=== PATIENT | male | born 1965 | race Caucasian/White ===

== ENCOUNTER 2018-08-14 11:43 | Emergency (ER) | payer OTHER ==
--- OUTSIDE RECORDS SUMMARY | 2018-08-14 11:46 | XMS REPORT | Continuity of Care Document ---
:1965 Author Organization Interface Problems Problem Status Onset Classification Date Comments Source Date Reported SIALOLTHOASIS Active 11/03/19 [facility] [place] BURN Active 01/16/[address] Anxiety Resolved Problem 01/17/2013 [facility] Bipolar Resolved Problem 01/17/2013 [facility] Depression Resolved Problem 01/17/2013 [facility] Hepatitis C Resolved Problem 01/17/2013 [facility] Seizure Resolved Problem 01/17/2013 [facility] Anxiety Resolved Problem 01/06/2017 [facility] Bipolar Resolved Problem 01/06/2017 [facility] COPD (<span Active Problem 01/06/2017 ID="[id number] [facility] ">Confirmed</spa n>) Congestive heart Active Problem 01/06/20172015 failure (<[facility] ID="[id number] ">Confirmed</spa n>)<sup>1</sup> Depression Resolved Problem 01/06/2017 [facility] Acid reflux Active Problem 01/06/2017 [facility] Hepatitis C Resolved Problem 01/06/2017 [facility] Depression Active Problem 01/06/2017 [facility] Seizure Resolved Problem 01/06/2017 [facility] Apnea, sleep Active Problem 01/06/2017 [facility] CAT BITE Active [facility] Medications Medication Details Route Status Patient Ordering Order Source Instructions Provider Date Acetaminophen 1,000 [facility], [facility]: IVPB, 2016 [facility] Drug form: INJ, ONCE, Dosing Weight 140, kg, PRN Pain Score 1-3, Start date: 01/03/17 11:56:00 CDT, Duration: 1 doses or times, Stop date: Limited # of times Calcium Chloride 1,000 mL, Rate: Inactive 0.0014 MEQ/ML / 125 ml/hr, 2016 [facility] Potassium Infuse over: 8 Chloride 0.004 hr, Route: IV, MEQ/ML / Sodium Dosing Weight Chloride 0.103 140 kg, Total MEQ/ML / Sodium Volume: 1,000, Lactate 0.028 Start date: MEQ/ML 01/03/17 Injectable 11:56:00 CDT, Solution Duration: 30 day, Stop date: 02/02/17 11:55:00 CDT Fentanyl 50 microgram, 1 Inactive mL, Route: IVP2016 [facility] Drug form: INJ, Q5Min, Dosing Weight 140, kg, PRN Pain Score 7-10, Priority: Routine, Start date: 01/03/17 11:56:00 CDT, Duration: 2 doses or times, Stop date: Limited # of timesNotes: (Same as: Sublimaze) Preservative free. Morphine 4 mg, 1 mL, Inactive Route: IVP2016 [facility] Drug form: INJ, Q5Min, Dosing Weight 140, kg, PRN Pain Score 7-10, Start date: 01/03/17 11:56:00 CDT, Duration: 3 doses or times, Stop date: Limited # of timesNotes: (Same as:MORPhine Sulfate) Flumazenil 0.2 mg, 2 mL, Inactive Route: IV2016 [facility] Drug form: INJ, PRN, Dosing Weight 140, kg, PRN Benzodiazepine Reversal, Initial dose, Start date: 01/03/17 11:56:00 CDT, Duration: 30 day, Stop date: 02/02/17 11:55:00 CDTNotes: (Same as: Romazicon) Hydralazine 5 mg, 0.25 mL, Inactive Route: IV2016 [facility] Drug form: INJ, Q20Min, Dosing Weight 140, kg, PRN Elevated BP, Start date: 01/03/17 11:56:00 CDT, Duration: 4 doses or times, Stop date: Limited # of timesNotes: (Same as: Apresoline) Push over 5 minutes Labetalol 5 mg, 1 mL, Inactive Route: IVP2016 [facility] Drug form: INJ, Q5Min, Dosing Weight 140, kg, PRN Elevated BP, Start date: 01/03/17 11:56:00 CDT, Duration: 5 doses or times, Stop date: Limited # of timesNotes: (Same as: Normodyne, Trandate) Push over 2 minutes Give bolus over 2-3 minutes. Naloxone 0.4 mg, 1 mL, Inactive Route: IVP, 2017 [facility] Drug form: INJ, Q2MIN, Dosing Weight 140, kg, PRN Narcotic Reversal, Start date: 01/03/17 11:56:00 CDT, Duration: 8 doses or times, Stop date: Limited # of timesNotes: Same as Narcan Midazolam 1 mg, 1 mL, Inactive Route: IV2016 [facility] Drug form: INJ, Q5Min, Dosing Weight 140, kg, PRN Anxiety, Start date: 01/03/17 11:56:00 CDT, Duration: 2 doses or times, Stop date: Limited # of timesNotes: (Same as: Versed) MEDICATION WASTE Product Size: 2 mg Product Wasted: ___ mg Meperidine 12.5 mg, 0.25 Inactive mL, Route: IV2016 [facility] Drug form: INJ, Q30Min, Dosing Weight 140, kg, PRN Other -See Comment, For shivering, Start date: 01/03/17 11:56:00 CDT, Duration: 2 doses or times, Stop date: Limited # of timesNotes: (Same As: Demerol) Ondansetron 4 mg, 2 mL, Inactive Route: IV2016 [facility] Drug form: INJ, ONCE, Dosing Weight 140, kg, PRN Nausea & Vomiting, Start date: 01/03/17 11:56:00 CDTNotes: (Same as: Zofran) MEDICATION WASTE Product Size: 4 mg Product Wasted: ___ mg Diphenhydramine 12.5 mg, 0.25 Inactive mL, Route: IVP2016 [facility] Drug form: INJ, Q6H, Dosing Weight 140, kg, PRN Itching, Start date: 01/03/17 11:56:00 CDT, Duration: 30 day, Stop date: 02/02/17 11:55:00 CDTNotes: (Same as: Benadryl) ondansetron Route: IV, Drug Inactive (ANES) form: INJ, 2016 [facility] ONCE, Stop date: 01/03/17 11:37:00 CDT glycopyrrolate Route: IV, Drug Inactive MH (ANES) form: INJ, 2016 [facility] , Stop date: 01/03/17 11:37:00 CDT neostigmine Route: IV, Drug Inactive (ANES) form: INJ, 2016 [facility] , Stop date: 01/03/17 11:37:00 CDT dexamethasone Route: IV, Drug Inactive (ANES) form: INJ, 2016 [facility] , Stop date: 01/03/17 11:37:00 CDT Aspirin 0 Refill(s) Active 2016 [facility] rocuronium Route: IV, Drug Inactive (ANES) form: INJ, 2016 [facility] , Stop date: 01/03/17 11:12:00 CDT succinylcholine Route: IV, Drug Inactive (ANES) form: INJ, 2016 [facility] , Stop date: 01/03/17 11:07:00 CDT lidocaine (ANES) Route: IV, Drug Inactive form: INJ, 2016 [facility] , Stop date: 01/03/17 11:07:00 CDT propofol (ANES) Route: IV, Drug Inactive form: INJ, 2016 [facility] , Stop date: 01/03/17 11:07:00 CDT fentaNYL (ANES) Route: IV, Drug Inactive form: INJ, 2016 [facility] , Stop date: 01/03/17 11:07:00 CDT midazolam (ANES) Route: IV, Drug Inactive form: SOLN, 2016 [facility] , Stop date: 01/03/17 11:02:00 CDT ceFAZolin (ANES) Route: IV, Drug Inactive form: INJ, 2016 [facility] , Stop date: 01/03/17 11:02:00 CDT LR 1000 mL INJ Route: IV, Inactive (ANES) Total Volume: 2016 [facility] 1,000, Start date: 01/03/17 10:15:00 CDT, Stop date: 01/03/17 11:15:00 CDT Lasix =1 tab, PO, Active Daily, 0 2016 [facility] Refill(s) Polysporin 1 appl, Route: TOP No Longer [place] 05/08[facility] topical ointment TOP, BID, Drug Active 2012 Medical form: OINT, Center Start date: 01/16/13 9:00:00, Duration: 30 day, Stop date: 02/14/13 17:00:00 [place] 10/325 1-2 tab, PO, PO Active [place] [facility] oral tablet Q4-6H, PRN, 2012 Medical tab, Pain, Center Substitution Allowed, Maintenance morphine Sulfate 6 mg, 0.6 mL, IVP No Longer [place] 01/16[facility] Route: IVP, Active 2012 Medical Drug form: [place] SOLN, ONCE, Dosing Weight 129.545, kg, Priority: STAT, Start date: 01/15/13 21:51:00, Stop date: 01/15/13 21:51:00 bacitracin 5 appl, Route: TOP No Longer [place] 01/16[facility] topical TOP, ONCE, Drug Active 2012 Medical form: OINT, Center Start date: 01/15/13 21:46:00, Stop date: 01/15/13 21:46:00 bacitracin 1 appl, Route: TOP No Longer [place] 01/16[facility] TOP, ONCE, Active 2012 Medical Dosing Weight Center 129.545, kg, Start date: 01/15/13 21:41:00, Stop date: 01/15/13 21:41:00 morphine Sulfate 6 mg, Route: IVP No Longer [address] IVP, Drug form: Active 2012 Medical INJ, ONCE, Center Dosing Weight 129.545, kg, Priority: STAT, Start date: 01/15/13 21:34:00, Stop date: 01/15/13 21:34:00 Dilantin 100 mg 4 cap, Route: PO No Longer [place] 01/16[facility] oral capsule, PO, ONCE, Active 2012 Medical extended release Dosing Weight Center 129.545, kg, Start date: 01/15/13 20:45:00, Stop date: 01/15/13 20:45:00 morphine Sulfate 6 mg, 0.6 mL, IVP No Longer [place] [id number] Route: IVP, Active 2012 Medical Drug form: [place] SOLN, ONCE, Dosing Weight 129.545, kg, Priority: STAT, Start date: 01/15/13 20:43:00, Stop date: 01/15/13 20:43:00 Allergies, Adverse Reactions, Alerts Substance Category Reaction Severity Reaction Status Date Comments Source type Reported Other Food Assertion Drug Active crab Allergy<sup allergy [place] >1</sup> Immunizations Immunization Date Given Site Status Last Updated Comments Source Results Order Name Results Value Reference Date Interpretation Comments Source Range CHEMISTRY AGAP 14.2 10.0 - 05 Normal [place] meq/L 20.0 /2012 [facility] CHEMISTRY eGFR 103 05/ NA 1Result Comment: The eGFR is calculated using the CKD-EPI formula. In most young, healthy individuals the eGFR will be > 90 mL/min/1.73m2. The eGFR declines with age. An eGFR of 60-89 may be normal in [facility] mL/min/ /2012 some populations, particularly the elderly, for whom the CKD-EPI formula has not been extensively validated. Use of the eGFR is not recommended in the following populations: Medical 1.73m2 Center Individuals with unstable creatinine concentrations, including patients and those with serious co-morbid conditions. Patients with extremes in muscle mass or diet. The data above are obtained from the National Kidney Disease Education Program (NKDEP) which additionally recommends that when the eGFR is used in patients with extremes of body mass index for purposes of drug dosing, the eGFR should be multiplied by the estimated BMI. CHEMISTRY Calcium Lvl 8.9 8.5 - 10.5 01/16 Normal [place] mg/dL [facility] CHEMISTRY CO2 27 24 - 32 01/16 Normal [facility] meq/L [facility] CHEMISTRY Chloride Lvl 107 95 - 109 01/16 Normal [place] meq/L [facility] CHEMISTRY Potassium Lvl 4.2 3.5 - 5.1 01/16 Normal [facility] meq/L [facility] CHEMISTRY Creatinine 0.9 0.5 - 1.4 01/16 Normal [place] Lvl mg/dL [facility] CHEMISTRY Sodium Lvl 144 135 - 145 01/16 Normal [place] meq/L [facility] CHEMISTRY BUN 13 7 - 22 01/16 Normal [facility] mg/dL [facility] CHEMISTRY Glucose Lvl 113 70 - 99 01/16 HI 2Interpretive Data: Adult reference range values reflect the clinical guidelines [place] mg/dL /2012 of the [place] [employer]. [facility] HEMATOLOGY PTT 26.6 s 22.9 - 05 Normal 4Interpretive [facility] 35.8 /2012 Data: Heparin [facility] Center Range: 57 - 92 Seconds HEMATOLOGY PT 12.2 s 12.0 - 05/08 Normal [facility] 14.7 /2012 [facility] HEMATOLOGY INR 0.88 0.85 - 01/16 Normal 3Interpretive Data: RECOMMENDED RANGES FOR PROTIME INR: [facility] 1. 2.0-3.0 for most medical and surgical thromboembolic states. Medical 2.5-3.5 for artificial heart valves and recurrent embolism. Center INR SHOULD BE USED ONLY FOR PATIENTS ON STABLE ANTICOAGULANT THERAPY. HEMATOLOGY Macrocyte 1+ None Seen 01/16 [facility] *ABN* Center (01/15/2013 20:50:42) HEMATOLOGY Basophils # 0.0 0.0 - 0.2 05/ Normal [facility] HEMATOLOGY Lymphocytes # 2.8 1.0 - 5.5 / Normal [facility] HEMATOLOGY Segs-Bands # 3.7 1.5 - 8.1 05/ Normal [facility] HEMATOLOGY Eosinophils # 0.2 0.0 - 0.5 05/ Normal [facility] HEMATOLOGY Monocytes # 0.4 0.0 - 0.8 05/ Normal [facility] HEMATOLOGY Basophils 0.1 % 0.0 - 1.0 05/ Normal [facility] HEMATOLOGY Eosinophils 2.5 % 0.0 - 4.0 05/ Normal [facility] HEMATOLOGY Monocytes 6.0 % 2.0 - 12.0 05/ Normal [facility] HEMATOLOGY Lymphocytes 39.1 % 20.0 - 05/08 Normal [facility] 40.0 /2012 [facility] HEMATOLOGY Segs 52.3 % 45.0 - 05/08 Normal [facility] 75.0 /2012 [facility] HEMATOLOGY Platelet 126 133 - 450 05/ LOW [facility] HEMATOLOGY RDW 12.7 % 11.5 - 05/08 Normal [facility] 14.5 [facility] HEMATOLOGY MCHC 35.4 32.0 - 05/08 Normal [facility] g/dL 36.0 /2012 [facility] HEMATOLOGY Hct 45.9 % 42.0 - 05/08 Normal [facility] 54.0 /2012 [facility] HEMATOLOGY MCH 35.7 pg 27.0 - 01/16 [facility] 31.0 /2012 [facility] HEMATOLOGY MCV 100.7 80.0 - 01/16 [place] [facility] fL 94.0 /2012 [facility] HEMATOLOGY Hgb 16.2 14.0 - 01/16 Normal [facility] g/dL 18.0 /2012 [facility] HEMATOLOGY RBC 4.55 4.70 - 01/16 LOW [facility] M/CM 6.10 /2012 [facility] HEMATOLOGY MPV 7.2 fL 7.4 - 10.4 01/16 LOW [facility] HEMATOLOGY WBC 7.1 3.7 - 10.4 01/16 Normal [facility] /2012 [facility] HEMATOLOGY Anisocyte 1+ None Seen 01/16 [facility] *ABN* Center (01/15/2013 20:50:31) HEMATOLOGY Plt Morph Normal 01/16 Normal Medical (01/15/2013 20:50:31) Center Vital Signs Vital Sign Value Date Comments Source Respitory Rate 12 01/03/2017 [facility] Systolic (mm Hg) 126 01/03/2017 [facility] Diastolic (mm Hg) 57 01/03/2017 [facility] Respitory Rate 17 01/03/2017 [facility] Systolic (mm Hg) 131 01/03/2017 [facility] Diastolic (mm Hg) 62 01/03/2017 [facility] Respitory Rate 15 01/03/2017 [facility] Systolic (mm Hg) 115 01/03/2017 [facility] Diastolic (mm Hg) 65 01/03/2017 [facility] Heart Rate 58 01/03/2017 [facility] BMI Calculated 40.72 12/29/2016 [facility] Height 185.42 cm 12/29/2016 [facility] Weight 140 12/29/2016 [facility] Weight 129.545 01/16/2013 [facility] Height 185.42 cm 01/16/2013 [facility] Encounters Location Location Encounter Encounter Reason Attending ADM DC Status Source Details Type Number For Provider Date Date Visit [facility] Emergency [id number] MIGUEL LEVY 01/15 01/15 Active [facility] Medical /2012 [facility] [id number] Jitendra 01/03 01/03 [facility] [place] /2016 [facility] Procedures Procedure Code Date Perfomer Comments Source Arthrotomy of [id number] [facility] Hernia repair [id number] [facility] Arthrotomy of [id number] [facility] knee Hernia repair [id number] [facility]
--- OUTSIDE RECORDS SUMMARY | 2018-08-14 11:46 | XMS REPORT | CCD ---
:1965 Author Organization [facility] Care Team Providers Name Role Phone Nixon Rodriguez Consulting Provider Allergies, Adverse Reactions, Alerts Substance Reaction Status NKDA Active Problem List Condition Effective Dates Status Anxiety Resolved Bipolar Resolved Depression Resolved Hepatitis C Resolved Seizure Resolved Medications Medication Instructions Start Date End Date Status [place] 10/325 oral tablet 1-2 tab, PO, Q4-6H, PRN, 30 01/15/2013 01/20/2013 Ordered tab, Pain, Substitution Allowed, Maintenance Dilantin 100 mg oral 4 cap, Route: PO, ONCE, 01/15/2013 01/15/2013 Completed capsule, extended release Dosing Weight 129.545, kg, Start date: 01/15/13 20:45:00, Stop date: 01/15/13 20:45:00 morphine Sulfate 6 mg, Route: IVP, Drug 01/15/2013 01/15/2013 Completed form: INJ, ONCE, Dosing Weight 129.545, kg, Priority: STAT, Start date: 01/15/13 21:34:00, Stop date: 01/15/13 21:34:00 morphine Sulfate 6 mg, 0.6 mL, Route: IVP, 01/15/2013 01/15/2013 Completed Drug form: SOLN, ONCE, Dosing Weight 129.545, kg, Priority: STAT, Start date: 01/15/13 20:43:00, Stop date: 01/15/13 20:43:00 bacitracin topical 5 appl, Route: TOP, ONCE, 01/15/2013 01/15/2013 Completed Drug form: OINT, Start date: 01/15/13 21:46:00, Stop date: 01/15/13 21:46:00 bacitracin 1 appl, Route: TOP, ONCE, 01/15/2013 01/15/2013 Deleted Dosing Weight 129.545, kg, Start date: 01/15/13 21:41:00, Stop date: 01/15/13 21:41:00 morphine Sulfate 6 mg, 0.6 mL, Route: IVP, 01/15/2013 01/15/2013 Completed Drug form: SOLN, ONCE, Dosing Weight 129.545, kg, Priority: STAT, Start date: 01/15/13 21:51:00, Stop date: 01/15/13 21:51:00 Polysporin topical 1 appl, Route: TOP, BID, 01/16/2013 01/16/2013 Canceled ointment Drug form: OINT, Start date: 01/16/13 9:00:00, Duration: 30 day, Stop date: 02/14/13 17:00:00 Vital Signs Most recent to oldest [Reference Range]: 1 Height 185.42 cm (01/15/2013 20:25:00) Weight 129.545 kg (01/15/2013 20:25:00) Results CHEMISTRY Most recent to oldest [Reference Range]: 1 Sodium Lvl [135-145 mEq/L] 144 mEq/L (01/15/2013 20:50:42) Potassium Lvl [3.5-5.1 mEq/L] 4.2 mEq/L (01/15/2013 20:50:42) Chloride Lvl [95-109 mEq/L] 107 mEq/L (01/15/2013 20:50:42) CO2 [24-32 mEq/L] 27 mEq/L (01/15/2013 20:50:42) AGAP [10.0-20.0 mEq/L] 14.2 mEq/L (01/15/2013 20:50:42) Creatinine Lvl [0.5-1.4 mg/dL] 0.9 mg/dL (01/15/2013 20:50:42) eGFR 103 mL/min/1.73m2 1 *NA* (01/15/2013 20:50:42) BUN [7-22 mg/dL] 13 mg/dL (01/15/2013 20:50:42) Glucose Lvl [70-99 mg/dL] 113 mg/dL 2 *HI* (01/15/2013 20:50:42) Calcium Lvl [8.5-10.5 mg/dL] 8.9 mg/dL (01/15/2013 20:50:42) 1Result Comment: The eGFR is calculated using the CKD-EPI formula. In most young , healthy individualsthe eGFR will be >90 mL/min/1.73m2. The eGFR declines with age. An eGFR of 60-89 may be normal in some populations, particularly the elderly, for whom the CKD-EPI formula has not been extensively validated. Use of the eGFR is not recommended in the following populations: Individuals with unstable creatinine concentrations, including patients and those with serious co-morbid conditions. Patients with extremes in muscle mass or diet. The data above are obtained from the National Kidney Disease Education Program ( NKDEP) which additionally recommends that when the eGFR is used in patients with extremes of body mass index for purposesof drug dosing, the eGFR should be multiplied by the estimated BMI.2Interpretive Data: Adult reference range values reflect the clinical guidelines of the [place] [employer].HEMATOLOGY Most recent to oldest [Reference Range]: 1 WBC [3.7-10.4 K/CMM] 7.1 K/CMM (01/15/2013 20:50:42) RBC [4.70-6.10 M/CMM] 4.55 M/CMM *LOW* (01/15/2013 20:50:42) Hgb [14.0-18.0 g/dL] 16.2 g/dL (01/15/2013 20:50:42) Hct [42.0-54.0 %] 45.9 % (01/15/2013 20:50:42) MCV [80.0-94.0 fL] 100.7 fL *HI* (01/15/2013 20:50:42) MCH [27.0-31.0 pg] 35.7 pg *HI* (01/15/2013 20:50:42) MCHC [32.0-36.0 g/dL] 35.4 g/dL (01/15/2013 20:50:42) RDW [11.5-14.5 %] 12.7 % (01/15/2013 20:50:42) Platelet [133-450 K/CMM] 126 K/CMM *LOW* (01/15/2013 20:50:42) MPV [7.4-10.4 fL] 7.2 fL *LOW* (01/15/2013 20:50:42) Segs [45.0-75.0 %] 52.3 % (01/15/2013 20:50:42) Lymphocytes [20.0-40.0 %] 39.1 % (01/15/2013 20:50:42) Monocytes [2.0-12.0 %] 6.0 % (01/15/2013 20:50:42) Eosinophils [0.0-4.0 %] 2.5 % (01/15/2013 20:50:42) Basophils [0.0-1.0 %] 0.1 % (01/15/2013 20:50:42) Segs-Bands # [1.5-8.1 K/CMM] 3.7 K/CMM (01/15/2013 20:50:42) Lymphocytes # [1.0-5.5 K/CMM] 2.8 K/CMM (01/15/2013 20:50:42) Monocytes # [0.0-0.8 K/CMM] 0.4 K/CMM (01/15/2013 20:50:42) Eosinophils # [0.0-0.5 K/CMM] 0.2 K/CMM (01/15/2013 20:50:42) Basophils # [0.0-0.2 K/CMM] 0.0 K/CMM (01/15/2013 20:50:42) Anisocyte [None Seen] 1+ *ABN* (01/15/2013 20:50:31) Macrocyte [None Seen] 1+ *ABN* (01/15/2013 20:50:42) Plt Morph Normal (01/15/2013 20:50:31) PT [12.0-14.7 seconds] 12.2 seconds (01/15/2013 20:50:42) INR [0.85-1.17] 0.88 3 (01/15/2013 20:50:42) PTT [22.9-35.8 seconds] 26.6 seconds 4 (01/15/2013 20:50:42) 3Interpretive Data: RECOMMENDED RANGES FOR PROTIME INR: 2.0-3.0 for most medical and surgical thromboembolic states. 2.5-3.5 for artificial heart valves and recurrent embolism. INR SHOULD BE USED ONLY FOR PATIENTS ON STABLE ANTICOAGULANT THERAPY.4Interpretive Data: Heparin Therapeutic Range: 57 - 92 Seconds Procedures Procedures Date Related Diagnosis Arthrotomy of knee Hernia repair
[2018-08-14] MEDS ORDERED: TOBRAMYCIN SULF 0.3% OPTH OINT ONE (12:43)
[2018-08-14] MEDS ORDERED: TETRACAINE HCL 0.5% 2ML OPTH ONE (12:43)
[2018-08-14] MEDS ORDERED: FLUORESCEIN SODIUM 0.6 MG/WRAP ONE (12:44)
--- NOTE | 2018-08-14 12:56 | EDPHYS ---
Physician Documentation [facility] Name: Mick Jones Age: 53 yrs Sex: Male : 1965 Arrival Date: 08/14/2018 Time: 11:46 Bed 23 Private MD: ED Physician Frankie Wu HPI: 08/14 12:47 This 53 yrs old Male presents to ER via Ambulatory with complaints of Foreign randy Body In Eye. 12:47 The patient is experiencing foreign body sensation, pain, redness, The patient randy sustained an abrasion, contusion, Unknown. Onset: The symptoms/episode began/occurred 3 day(s) ago. Duration: the symptoms are continuous. Aggravated by blinking, closing eye, opening eye, pressure, rubbing. Associated signs and symptoms: Pertinent positives: None. Patient does not utilize any form of vision correction. The patient has not experienced similar symptoms in the past. Historical: - Allergies: 12:07 No Known Allergies; aj - Home Meds: 12:07 Tegretol Oral [Active]; Xanax Oral [Active]; Hydrocodone-Acetaminophen Oral [Active]; aj Lasix Oral [Active]; - PMHx: 12:07 Back pain; aj - PSHx: 12:07 Knee surgery; Hernia repair; aj - Immunization history:: Adult Immunizations up to date. - Social history:: Smoking status: Patient uses tobacco products, smokes one-half pack cigarettes per day, smokes one pack cigarettes per day. - Ebola Screening: : Patient negative for fever greater than or equal to 101.5 degrees Fahrenheit, and additional compatible Ebola Virus Disease symptoms Patient denies exposure to infectious person Patient denies travel to an Ebola-affected area in the 21 days before illness onset No symptoms or risks identified at this time. - Family history:: not pertinent. ROS: 12:47 Constitutional: Negative for fever, chills, and weight loss, ENT: Negative for injury, randy pain, and discharge, Neck: Negative for injury, pain, and swelling, Cardiovascular: Negative for chest pain, palpitations, and edema, Respiratory: Negative for shortness of breath, cough, wheezing, and pleuritic chest pain, Abdomen/GI: Negative for abdominal pain, nausea, vomiting, diarrhea, and constipation, Back: Negative for injury and pain, : Negative for injury, bleeding, discharge, and swelling, MS/Extremity: Negative for injury and deformity, Skin: Negative for injury, rash, and discoloration, Neuro: Negative for headache, weakness, numbness, tingling, and seizure, Psych: Negative for depression, anxiety, suicide ideation, homicidal ideation, and hallucinations, Endocrine: Negative for neck swelling, polydipsia, polyuria, polyphagia, and marked weight changes, Hematologic/Lymphatic: Negative for swollen nodes, abnormal bleeding, and unusual bruising. 12:47 Eyes: Positive for pain, redness, swelling, of the left lower eyelid. Exam: 12:47 Constitutional: This is a well developed, well nourished patient who is awake, alert, randy and in no acute distress. Head/Face: Normocephalic, atraumatic. ENT: Nares patent. No nasal discharge, no septal abnormalities noted. Tympanic membranes are normal and external auditory canals are clear. Oropharynx with no redness, swelling, or masses, exudates, or evidence of obstruction, uvula midline. Mucous membranes moist. Neck: Trachea midline, no thyromegaly or masses palpated, and no cervical lymphadenopathy. Supple, full range of motion without nuchal rigidity, or vertebral point tenderness. No Meningismus. Chest/axilla: Normal chest wall appearance and motion. Nontender with no deformity. No lesions are appreciated. Cardiovascular: Regular rate and rhythm with a normal S1 and S2. No gallops, murmurs, or rubs. Normal PMI, no JVD. No pulse deficits. Respiratory: Lungs have equal breath sounds bilaterally, clear to auscultation and percussion. No rales, rhonchi or wheezes noted. No increased work of breathing, no retractions or nasal flaring. Abdomen/GI: Soft, non-tender, with normal bowel sounds. No distension or tympany. No guarding or rebound. No evidence of tenderness throughout. Back: No spinal tenderness. No costovertebral tenderness. Full range of motion. Skin: Warm, dry with normal turgor. Normal color with no rashes, no lesions, and no evidence of cellulitis. MS/ Extremity: Pulses equal, no cyanosis. Neurovascular intact. Full, normal range of motion. Neuro: Awake and alert, GCS 15, oriented to person, place, time, and situation. Cranial nerves II-XII grossly intact. Motor strength 5/5 in all extremities. Sensory grossly intact. Cerebellar exam normal. Normal gait. Psych: Awake, alert, with orientation to person, place and time. Behavior, mood, and affect are within normal limits. 12:47 Eyes: Pupils: no acute changes, equal, round, and reactive to light and accomodation, Extraocular movements: no acute changes, Conjunctiva: normal, no acute changes, Corneas: are normal, no acute changes, Sclera: no appreciated abnormality, no acute changes, Anterior chamber: normal, no acute changes, Lids and lashes: edema, erythema, laceration, that is superficial, of the left lower eyelid. Vital Signs: 12:07 BP 152 / 69; Pulse 61; Resp 20; Temp 98.7; Pulse Ox 96% on R/A; Weight 135.62 kg; aj Height 6 ft. 1 in. (185.42 cm); 12:07 Body Mass Index 39.45 (135.62 kg, 185.42 cm) MDM: 12:06 Patient medically screened. [facility] 12:51 Data reviewed: vital signs, nurses notes. [facility] 08/14 12:47 Order name: Eye Tray; Complete Time: 12:49 [facility] Administered Medications: 12:49 Drug: Tobramycin Ointment (0.3 %) 1 application Route: Ophthalmic; Site: left eye; 13:24 Follow up: Response: No adverse reaction 12:49 Drug: Tetracaine Drops 0.5 % 1 drops Route: Ophthalmic; Site: left eye; aj 13:24 Follow up: Response: No adverse reaction Disposition: 08/14/18 12:54 Discharged to Home. Impression: Conjunctivitis, Laceration without foreign body of eyelid and periocular area. - Condition is Stable. - Discharge Instructions: Allergic Conjunctivitis, Adult, Bacterial Conjunctivitis. - Prescriptions for Tobrex 0.3 % Ophthalmic ointment - apply 1 inch ribbon by OPHTHALMIC route 2-3 times daily; 3.5 gram. - Medication Reconciliation Form, Thank You Letter, Antibiotic Education, Prescription Opioid Use form. - Follow up: Private Physician; When: 2 - 3 days; Reason: Recheck today's complaints, Continuance of care, Re-evaluation by your physician. Follow up: Saul Yanez MD; When: 2 - 3 days; Reason: Recheck today's complaints, Re-evaluation by your physician. - Problem is new. - Symptoms have improved. Signatures: Radha Acharya RN RN aj Anderson, Corey, MD MD cha Corrections: (The following items were deleted from the chart) 13:24 12:54 08/14/2018 12:54 Discharged to Home. Impression: Conjunctivitis; Laceration aj without foreign body of eyelid and periocular area. Condition is Stable. Forms are Medication Reconciliation Form, Thank You Letter, Antibiotic Education, Prescription Opioid Use. Follow up: Private Physician; When: 2 - 3 days; Reason: Recheck today's complaints, Continuance of care, Re-evaluation by your physician. Follow up: Saul Yanez; When: 2 - 3 days; Reason: Recheck today's complaints, Re-evaluation by your physician. Problem is new. Symptoms have improved. randy
--- NOTE | 2018-08-14 12:56 | ER ---
Nurse's Notes [facility] Name: Mick Jones Age: 53 yrs Sex: Male : 1965 Arrival Date: 08/14/2018 Time: 11:46 Bed 23 Private MD: Diagnosis: Conjunctivitis;Laceration without foreign body of eyelid and periocular area Presentation: 08/14 12:04 Presenting complaint: Patient states: Reports wood splinter in left lower eyelid for 2 aj days. Patient denies vision changes or pain. Transition of care: patient was not received from another setting of care. Onset of symptoms was August 12, 2018. Risk Assessment: Do you want to hurt yourself or someone else? Patient reports no desire to harm self or others. Initial Sepsis Screen: Does the patient meet any 2 criteria? No. Patient's initial sepsis screen is negative. Does the patient have a suspected source of infection? No. Patient's initial sepsis screen is negative. Care prior to arrival: None. 12:04 Method Of Arrival: Ambulatory 12:04 Acuity: KAITLYNN 2 aj Triage Assessment: 12:07 General: Appears in no apparent distress. comfortable, Behavior is calm, cooperative, aj appropriate for age. Pain: Denies pain. EENT: Lid(s) abrasion noted to left lower inner lid. Neuro: Level of Consciousness is awake, alert, obeys commands, Oriented to person, place, time, situation, Appropriate for age. Respiratory: Airway is patent Respiratory effort is even, unlabored, Respiratory pattern is regular, symmetrical. GI: Abdomen is round non-distended. Derm: Skin is intact, is healthy with good turgor, Skin is pink, warm \T\ dry. normal. Historical: - Allergies: 12:07 No Known Allergies; aj - Home Meds: 12:07 Tegretol Oral [Active]; Xanax Oral [Active]; Hydrocodone-Acetaminophen Oral [Active]; aj Lasix Oral [Active]; - PMHx: 12:07 Back pain; aj - PSHx: 12:07 Knee surgery; Hernia repair; aj - Immunization history:: Adult Immunizations up to date. - Social history:: Smoking status: Patient uses tobacco products, smokes one-half pack cigarettes per day, smokes one pack cigarettes per day. - Ebola Screening: : Patient negative for fever greater than or equal to 101.5 degrees Fahrenheit, and additional compatible Ebola Virus Disease symptoms Patient denies exposure to infectious person Patient denies travel to an Ebola-affected area in the 21 days before illness onset No symptoms or risks identified at this time. - Family history:: not pertinent. Screenin:25 Abuse screen: Denies threats or abuse. Denies injuries from another. Nutritional aj screening: No deficits noted. Tuberculosis screening: No symptoms or risk factors identified. Fall Risk None identified. Assessment: 12:11 Reassessment: See triage. aj Vital Signs: 12:07 BP 152 / 69; Pulse 61; Resp 20; Temp 98.7; Pulse Ox 96% on R/A; Weight 135.62 kg; aj Height 6 ft. 1 in. (185.42 cm); 12:07 Body Mass Index 39.45 (135.62 kg, 185.42 cm) ED Course: 11:46 Patient arrived in ED. tw3 12:04 Radha Acharya RN is Primary Nurse. 12:05 Triage completed. aj 12:06 Frankie Wu MD is Attending Physician. [facility] 12:07 Arm band placed on left wrist. Patient placed in an exam room, on a stretcher. aj 12:52 Saul Yanez MD is Referral Physician. [facility] 13:25 No provider procedures requiring assistance completed. Patient did not have IV access aj during this emergency room visit. 13:26 Patient has correct armband on for positive identification. aj Administered Medications: 12:49 Drug: Tobramycin Ointment (0.3 %) 1 application Route: Ophthalmic; Site: left eye; 13:24 Follow up: Response: No adverse reaction aj 12:49 Drug: Tetracaine Drops 0.5 % 1 drops Route: Ophthalmic; Site: left eye; aj 13:24 Follow up: Response: No adverse reaction Outcome: 12:54 Discharge ordered by . randy 13:24 Patient left the ED. aj 13:25 Discharged to home ambulatory. aj 13:25 Condition: good 13:25 Discharge instructions given to patient, Instructed on discharge instructions, follow up and referral plans. medication usage, Demonstrated understanding of instructions, follow-up care, medications, Prescriptions given X 1. Signatures: Radha Acharya RN RN aj Anderson, Corey, MD MD cha Wade, Tia tw3
== END 2018-08-14 13:24 | disposition home or self-care (01) ==
LOC: ER 11:43
DX: H10.9 Unspecified conjunctivitis (principal); S01.112A Laceration without foreign body of left eyelid and periocular area, initial encounter; X58.XXXA Exposure to other specified factors, initial encounter; F17.210 Nicotine dependence, cigarettes, uncomplicated; Z79.891 Long term (current) use of opiate analgesic; Z79.899 Other long term (current) drug therapy
CPT/HCPCS: 99283

== ENCOUNTER 2018-09-23 15:24 | Emergency (ER) | payer OTHER ==
--- OUTSIDE RECORDS SUMMARY | 2018-09-23 15:27 | XMS REPORT | Clinical Summary ---
:1965 Author Organization [facility] Address [address] [place] [address] Care Team Providers Name Role Phone Mario Martinez MD Primary Care Provider Allergies Not on File Medications Not on file Active Problems Not on file Encounters Date Type Specialty Care Team Description 08/28/2018 Hospital Encounter Radiology Naeem Qureshi Chronic pain of left MD Gee knee 08/28/2018 Outside Orders Central Scheduling Naeem Qureshi Chronic pain of left MD Gee knee (Primary Dx) after 09/22/2017 Social History Tobacco Use Types Packs/Day Years Used Date Never Assessed Sex Assigned at Date Recorded Not on file Job Start Date Occupation Industry Not on file Not on file Not on file Travel History Travel Start Travel End No recent travel history available. Last Filed Vital Signs Not on file Plan of Treatment Not on file Procedures Procedure Name Priority Date/Time Associated Diagnosis Comments XR KNEE LEFT 1 OR 2 Routine 08/28/2018 4:14 PM Chronic pain of left Results for this [employer] knee procedure are in the results section. after 09/22/2017 Results XR knee 1 or 2 views left (08/28/2018 4:14 PM [employer]) Narrative Performed At FINAL REPORT [facility] Exam:Left knee two views History:Pain Comparison: None. Findings: No fracture or malalignment. Degenerative arthrosis of the knee most prominent involving the medial compartment with joint space narrowing and osteophytosis. Calcified bodies posteriorly. Impression: Moderate degenerative arthrosis of the medial compartment of the knee. Signed: Kulwant Ivy MD Report Verified Date/Time:08/28/2018 16:27:13 Reading Location: [facility] Reading Room [address] [place] [address] Procedure Note Interface, External Ris In - 08/28/2018 4:29 PM [employer] FINAL REPORT Exam: Left knee two views History: Pain Comparison: None. Findings: No fracture or malalignment. Degenerative arthrosis of the knee most prominent involving the medial compartment with joint space narrowing and osteophytosis. Calcified bodies posteriorly. Impression: Moderate degenerative arthrosis of the medial compartment of the knee. Signed: Kulwant Ivy MD Report Verified Date/Time: 08/28/2018 16:27:13 Reading Location: [facility] Reading Room [address] [place] [address] Performing Organization Address City/State/Zipcode Phone Number GE RIS after 09/22/2017 Insurance Payer Benefit Plan / Subscriber ID Type Phone Address Group MEDICAID - MEDICAID [facility] xxxxxxxxx Medicaid Contracted MGD CARE PLAN
--- OUTSIDE RECORDS SUMMARY | 2018-09-23 15:27 | XMS REPORT | CCD ---
:1965 Author Organization [facility] Care Team Providers Name Role Phone Nixon Rodriguez Consulting Provider Allergies, Adverse Reactions, Alerts Substance Reaction Status NKDA Active Problem List Condition Effective Dates Status Anxiety Resolved Bipolar Resolved Depression Resolved Hepatitis C Resolved Seizure Resolved Medications Medication Instructions Start Date End Date Status [place] 10/325 oral tablet 1-2 tab, PO, Q4-6H, [...] values reflect the clinical guidelines of the [place] [employer].HEMATOLOGY Most recent to oldest [Reference [...]
--- OUTSIDE RECORDS SUMMARY | 2018-09-23 15:27 | XMS REPORT | Continuity of Care Document ---
:1965 Author Organization Interface Problems Problem Status Onset Classification Date Comments Source Date Reported SIALOLTHOASIS Active 11/03/19 [facility] BURN Active 01/16/[address] Anxiety Resolved Problem 01/17/2013 [facility] Bipolar Resolved Problem 01/17/2013 [facility] Depression Resolved Problem 01/17/2013 [facility] Hepatitis C Resolved Problem 01/17/2013 [facility] Seizure Resolved Problem 01/17/2013 [facility] Anxiety Resolved Problem 01/06/2017 [facility] Bipolar Resolved Problem 01/06/2017 [facility] COPD (<span Active Problem 01/06/2017 ID="[id number] [facility] ">Confirmed</spa n>) Congestive heart Active Problem 01/06/20172015 failure (<[facility] ID="[id number] ">Confirmed</spa n>)<sup>1</sup> Depression Resolved Problem 01/06/2017 [facility] Acid reflux Active Problem 01/06/2017 [facility] Hepatitis C Resolved Problem 01/06/2017 [facility] Depression Active Problem 01/06/2017 [facility] Seizure Resolved Problem 01/06/2017 [facility] Apnea, sleep Active Problem 01/06/2017 [facility] CAT BITE Active [facility] Medications Medication Details Route Status Patient Ordering Order Source Instructions Provider Date Acetaminophen 1,000 mg, Inactive [facility] Route: IVPB, 2016 [facility] Drug form: INJ, ONCE, Dosing Weight 140, kg, PRN Pain Score 1-3, Start date: 01/03/17 11:56:00 CDT, Duration: 1 doses or times, Stop date: Limited # of times Calcium Chloride 1,000 mL, Rate: Inactive 0.0014 MEQ/ML / 125 ml/hr, 2016 [facility] Potassium Infuse over: 8 Chloride 0.004 hr, Route: IV, MEQ/ML / Sodium Dosing Weight Chloride 0.103 140 kg, Total MEQ/ML / Sodium Volume: 1,000, Lactate 0.028 Start date: MEQ/ML 01/03/17 Injectable 11:56:00 CDT, Solution Duration: 30 day, Stop date: 02/02/17 11:55:00 CDT Fentanyl 50 microgram, 1 Inactive mL, Route: IVP2016 [facility] Drug form: INJ, Q5Min, Dosing Weight 140, kg, PRN Pain Score 7-10, Priority: Routine, Start date: 01/03/17 11:56:00 CDT, Duration: 2 doses or times, Stop date: Limited # of timesNotes: (Same as: Sublimaze) Preservative free. Morphine 4 mg, 1 mL, Inactive Route: IVP2016 [facility] Drug form: INJ, Q5Min, Dosing Weight 140, kg, PRN Pain Score 7-10, Start date: 01/03/17 11:56:00 CDT, Duration: 3 doses or times, Stop date: Limited # of timesNotes: (Same as:MORPhine Sulfate) Flumazenil 0.2 mg, 2 mL, Inactive Route: IV2016 [facility] Drug form: INJ, PRN, Dosing Weight 140, kg, PRN Benzodiazepine Reversal, Initial dose, Start date: 01/03/17 11:56:00 CDT, Duration: 30 day, Stop date: 02/02/17 11:55:00 CDTNotes: (Same as: Romazicon) Hydralazine 5 mg, 0.25 mL, Inactive Route: IV2016 [facility] Drug form: INJ, Q20Min, Dosing Weight 140, kg, PRN Elevated BP, Start date: 01/03/17 11:56:00 CDT, Duration: 4 doses or times, Stop date: Limited # of timesNotes: (Same as: Apresoline) Push over 5 minutes Labetalol 5 mg, 1 mL, Inactive Route: IVP2016 [facility] Drug form: INJ, Q5Min, Dosing Weight 140, kg, PRN Elevated BP, Start date: 01/03/17 11:56:00 CDT, Duration: 5 doses or times, Stop date: Limited # of timesNotes: (Same as: Normodyne, Trandate) Push over 2 minutes Give bolus over 2-3 minutes. Naloxone 0.4 mg, 1 mL, Inactive Route: IVP, 2017 [facility] Drug form: INJ, Q2MIN, Dosing Weight 140, kg, PRN Narcotic Reversal, Start date: 01/03/17 11:56:00 CDT, Duration: 8 doses or times, Stop date: Limited # of timesNotes: Same as Narcan Midazolam 1 mg, 1 mL, Inactive Route: IV2016 [facility] Drug form: INJ, Q5Min, Dosing Weight 140, kg, PRN Anxiety, Start date: 01/03/17 11:56:00 CDT, Duration: 2 doses or times, Stop date: Limited # of timesNotes: (Same as: Versed) MEDICATION WASTE Product Size: 2 mg Product Wasted: ___ mg Meperidine 12.5 mg, 0.25 Inactive mL, Route: IV2016 [facility] Drug form: INJ, Q30Min, Dosing Weight 140, kg, PRN Other -See Comment, For shivering, Start date: 01/03/17 11:56:00 CDT, Duration: 2 doses or times, Stop date: Limited # of timesNotes: (Same As: Demerol) Ondansetron 4 mg, 2 mL, Inactive Route: IV2016 [facility] Drug form: INJ, ONCE, Dosing Weight 140, kg, PRN Nausea & Vomiting, Start date: 01/03/17 11:56:00 CDTNotes: (Same as: Zofran) MEDICATION WASTE Product Size: 4 mg Product Wasted: ___ mg Diphenhydramine 12.5 mg, 0.25 Inactive mL, Route: IVP2016 [facility] Drug form: INJ, Q6H, Dosing Weight 140, kg, PRN Itching, Start date: 01/03/17 11:56:00 CDT, Duration: 30 day, Stop date: 02/02/17 11:55:00 CDTNotes: (Same as: Benadryl) ondansetron Route: IV, Drug Inactive (ANES) form: INJ, 2016 [facility] ONCE, Stop date: 01/03/17 11:37:00 CDT glycopyrrolate Route: IV, Drug Inactive MH (ANES) form: INJ, 2016 [facility] , Stop date: 01/03/17 11:37:00 CDT neostigmine Route: IV, Drug Inactive (ANES) form: INJ, 2016 [facility] , Stop date: 01/03/17 11:37:00 CDT dexamethasone Route: IV, Drug Inactive (ANES) form: INJ, 2016 [facility] , Stop date: 01/03/17 11:37:00 CDT Aspirin 0 Refill(s) Active 2016 [facility] rocuronium Route: IV, Drug Inactive (ANES) form: INJ, 2016 [facility] , Stop date: 01/03/17 11:12:00 CDT succinylcholine Route: IV, Drug Inactive (ANES) form: INJ, 2016 [facility] , Stop date: 01/03/17 11:07:00 CDT lidocaine (ANES) Route: IV, Drug Inactive form: INJ, 2016 [facility] , Stop date: 01/03/17 11:07:00 CDT propofol (ANES) Route: IV, Drug Inactive form: INJ, 2016 [facility] , Stop date: 01/03/17 11:07:00 CDT fentaNYL (ANES) Route: IV, Drug Inactive form: INJ, 2016 [facility] , Stop date: 01/03/17 11:07:00 CDT midazolam (ANES) Route: IV, Drug Inactive form: SOLN, 2016 [facility] , Stop date: 01/03/17 11:02:00 CDT ceFAZolin (ANES) Route: IV, Drug Inactive form: INJ, 2016 [facility] , Stop date: 01/03/17 11:02:00 CDT LR 1000 mL INJ Route: IV, Inactive (ANES) Total Volume: 2016 [facility] 1,000, Start date: 01/03/17 10:15:00 CDT, Stop date: 01/03/17 11:15:00 CDT Lasix =1 tab, PO, Active Daily, 0 2016 [facility] Refill(s) Polysporin 1 appl, Route: TOP No Longer [place] 05/08[facility] topical ointment TOP, BID, Drug Active 2012 Medical form: OINT, Center Start date: 01/16/13 9:00:00, Duration: 30 day, Stop date: 02/14/13 17:00:00 [place] 10/325 1-2 tab, PO, PO Active [facility] oral tablet Q4-6H, PRN, 2012 Medical tab, Pain, Center Substitution Allowed, Maintenance morphine Sulfate 6 mg, 0.6 mL, IVP No Longer [place] 01/16[facility] Route: IVP, Active 2012 Medical Drug form: [place] SOLN, ONCE, Dosing Weight 129.545, kg, Priority: STAT, Start date: 01/15/13 21:51:00, Stop date: 01/15/13 21:51:00 bacitracin 5 appl, Route: TOP No Longer [place] 01/16[facility] topical TOP, ONCE, Drug Active 2012 Medical form: OINT, Center Start date: 01/15/13 21:46:00, Stop date: 01/15/13 21:46:00 bacitracin 1 appl, Route: TOP No Longer [place] 01/16[facility] TOP, ONCE, Active 2012 Medical Dosing Weight Center 129.545, kg, Start date: 01/15/13 21:41:00, Stop date: 01/15/13 21:41:00 morphine Sulfate 6 mg, Route: IVP No Longer [address] IVP, Drug form: Active 2012 Medical INJ, ONCE, Center Dosing Weight 129.545, kg, Priority: STAT, Start date: 01/15/13 21:34:00, Stop date: 01/15/13 21:34:00 Dilantin 100 mg 4 cap, Route: PO No Longer [place] 01/16[facility] oral capsule, PO, ONCE, Active 2012 Medical extended release Dosing Weight Center 129.545, kg, Start date: 01/15/13 20:45:00, Stop date: 01/15/13 20:45:00 morphine Sulfate 6 mg, 0.6 mL, IVP No Longer [place] [id number] Route: IVP, Active 2012 Medical Drug form: [place] SOLN, ONCE, Dosing Weight 129.545, kg, Priority: [...] - 05 Normal [place] meq/L 20.0 /2012 [facility] CHEMISTRY eGFR 103 05/ NA 1Result Comment: The eGFR is calculated using the CKD-EPI formula. In most young, healthy individuals the eGFR will be > 90 mL/min/1.73m2. The eGFR declines with age. An eGFR of 60-89 may be normal in [facility] mL/min/ /2012 some populations, particularly the [...] 8.5 - 10.5 01/16 Normal [place] mg/dL [facility] CHEMISTRY CO2 27 24 - 32 01/16 Normal [facility] meq/L [facility] CHEMISTRY Chloride Lvl 107 95 - 109 01/16 Normal [place] meq/L [facility] CHEMISTRY Potassium Lvl 4.2 3.5 - 5.1 01/16 Normal [facility] meq/L [facility] CHEMISTRY Creatinine 0.9 0.5 - 1.4 01/16 Normal [place] Lvl mg/dL [facility] CHEMISTRY Sodium Lvl 144 135 - 145 01/16 Normal [place] meq/L [facility] CHEMISTRY BUN 13 7 - 22 01/16 Normal [facility] mg/dL [facility] CHEMISTRY Glucose Lvl 113 70 - 99 01/16 HI 2Interpretive Data: Adult reference range values reflect the clinical guidelines [place] mg/dL /2012 of the [place] [employer]. [facility] HEMATOLOGY PTT 26.6 s 22.9 - 05 Normal 4Interpretive [facility] 35.8 /2012 Data: Heparin [facility] Center Range: 57 - 92 Seconds HEMATOLOGY PT 12.2 s 12.0 - 05/08 Normal [facility] 14.7 /2012 [facility] HEMATOLOGY INR 0.88 0.85 - 01/16 Normal 3Interpretive Data: RECOMMENDED RANGES FOR PROTIME INR: [facility] 1. 2.0-3.0 for most medical and surgical thromboembolic states. Medical 2.5-3.5 for artificial heart valves and recurrent embolism. Center INR SHOULD BE USED ONLY FOR PATIENTS ON STABLE ANTICOAGULANT THERAPY. HEMATOLOGY Macrocyte 1+ None Seen 01/16 [facility] *ABN* Center (01/15/2013 20:50:42) HEMATOLOGY Basophils # 0.0 0.0 - 0.2 05/ Normal [facility] HEMATOLOGY Lymphocytes # 2.8 1.0 - 5.5 / Normal [facility] HEMATOLOGY Segs-Bands # 3.7 1.5 - 8.1 05/ Normal [facility] HEMATOLOGY Eosinophils # 0.2 0.0 - 0.5 05/ Normal [facility] HEMATOLOGY Monocytes # 0.4 0.0 - 0.8 05/ Normal [facility] HEMATOLOGY Basophils 0.1 % 0.0 - 1.0 05/ Normal [facility] HEMATOLOGY Eosinophils 2.5 % 0.0 - 4.0 05/ Normal [facility] HEMATOLOGY Monocytes 6.0 % 2.0 - 12.0 05/ Normal [facility] HEMATOLOGY Lymphocytes 39.1 % 20.0 - 05/08 Normal [facility] 40.0 /2012 [facility] HEMATOLOGY Segs 52.3 % 45.0 - 05/08 Normal [facility] 75.0 /2012 [facility] HEMATOLOGY Platelet 126 133 - 450 05/ LOW [facility] HEMATOLOGY RDW 12.7 % 11.5 - 05/08 Normal [facility] 14.5 [facility] HEMATOLOGY MCHC 35.4 32.0 - 05/08 Normal [facility] g/dL 36.0 /2012 [facility] HEMATOLOGY Hct 45.9 % 42.0 - 05/08 Normal [facility] 54.0 /2012 [facility] HEMATOLOGY MCH 35.7 pg 27.0 - 01/16 [facility] 31.0 /2012 [facility] HEMATOLOGY MCV 100.7 80.0 - 01/16 HI [facility] fL 94.0 /2012 [facility] HEMATOLOGY Hgb 16.2 14.0 - 01/16 Normal [facility] g/dL 18.0 /2012 [facility] HEMATOLOGY RBC 4.55 4.70 - 01/16 LOW [facility] M/CM 6.10 /2012 [facility] HEMATOLOGY MPV 7.2 fL 7.4 - 10.4 01/16 LOW [facility] HEMATOLOGY WBC 7.1 3.7 - 10.4 01/16 Normal [facility] /2012 [facility] HEMATOLOGY Anisocyte 1+ None Seen 01/16 [facility] *ABN* Center (01/15/2013 20:50:31) HEMATOLOGY Plt Morph Normal 01/16 Normal Medical (01/15/2013 20:50:31) Center Vital Signs Vital Sign Value Date Comments Source Respitory Rate 12 01/03/2017 [facility] Systolic (mm Hg) 126 01/03/2017 [facility] Diastolic (mm Hg) 57 01/03/2017 [facility] Respitory Rate 17 01/03/2017 [facility] Systolic (mm Hg) 131 01/03/2017 [facility] Diastolic (mm Hg) 62 01/03/2017 [facility] Respitory Rate 15 01/03/2017 [facility] Systolic (mm Hg) 115 01/03/2017 [facility] Diastolic (mm Hg) 65 01/03/2017 [facility] Heart Rate 58 01/03/2017 [facility] BMI Calculated 40.72 12/29/2016 [facility] Height 185.42 cm 12/29/2016 [facility] Weight 140 12/29/2016 [facility] Weight 129.545 01/16/2013 [facility] Height 185.42 cm 01/16/2013 [facility] Encounters Location Location Encounter Encounter Reason Attending ADM DC Status Source Details Type Number For Provider Date Date Visit [facility] Emergency [id number] MIGUEL LEVY 01/15 01/15 Active [facility] Medical /2012 [facility] Day [id number] Jitendra 01/03 01/03 [facility] /2016 [facility] Procedures Procedure Code Date Perfomer Comments Source Arthrotomy of [id number] [facility] Hernia repair [id number] [facility] Arthrotomy of [id number] [facility] knee Hernia repair [id number] [facility]
--- OUTSIDE RECORDS SUMMARY | 2018-09-23 15:28 | XMS REPORT ---
:1965 Author [facility] Address [address] [place] [address] Dr. Redman[address] [place] [address] Care Team Providers Name Role Phone Unavailable Unavailable Unavailable Problems This patient has no known problems. Allergies, Adverse Reactions, Alerts This patient has no known allergies or adverse reactions. Medications This patient has no known medications. Results Test Description Test Time Test Comments Text Results Atomic Results Result Comments RAD, KNEE, OR 2018-08-28 16:27:00 Reason for FINAL REPORT PATIENT 2 VIEWS, LEFT Exam:->chronic pain of ID: [id number] Exam: left knee Left knee two views History: Pain Comparison: None. Findings: No fracture or malalignment. Degenerative arthrosis of the knee most prominent involving the medial compartment with joint space narrowing and osteophytosis. Calcified bodies posteriorly. Impression: Moderate degenerative arthrosis of the medial compartment of the knee. Signed: Kulwant Ivy MDReport Verified Date/Time: 08/28/2018 16:27:13 Reading Location: [facility] Reading Room [address] [place] [address]
[2018-09-23] MEDS ORDERED: HYDROCODONE/APAP 7.5/325 MG TAB ONE (16:55)
--- NOTE | 2018-09-23 17:20 | RAD REPORT ---
EXAM DESCRIPTION: RAD - Knee Left 3 View - 09/23/2018 5:13 pm CLINICAL HISTORY: knee pain, injury COMPARISON: No comparisons FINDINGS: Moderate osteoarthritic changes involve the medial joint compartment. No acute fracture or dislocation of the left knee seen. Trace suprapatellar joint fluid.
--- NOTE | 2018-09-23 17:43 | ER ---
Nurse's Notes [facility] Name: Mick Jones Age: 53 yrs Sex: Male : 1965 Arrival Date: 09/23/2018 Time: 15:28 Bed 19 Private MD: Mario Martinez Diagnosis: Internal derangement of knee Presentation: 09/23 15:33 Presenting complaint: Patient states: He was getting in his truck and he turned his leg aj1 wrong, he felt a pop in his left knee. Patient now has decreased ROM and pain in the left knee. Transition of care: patient was not received from another setting of care. Onset of symptoms was September 23, 2018. Risk Assessment: Do you want to hurt yourself or someone else? Patient reports no desire to harm self or others. Initial Sepsis Screen: Does the patient meet any 2 criteria? No. Patient's initial sepsis screen is negative. Does the patient have a suspected source of infection? No. Patient's initial sepsis screen is negative. Care prior to arrival: None. 15:33 Method Of Arrival: Wheelchair aj1 15:33 Acuity: KAITLYNN 4 aj1 Triage Assessment: 15:37 General: Appears in no apparent distress. uncomfortable, Behavior is calm, cooperative, aj1 appropriate for age. Pain: Complains of pain in left knee. Pain: Pain currently is 5 out of 10 on a pain scale. Neuro: Level of Consciousness is awake, alert, obeys commands. Cardiovascular: Patient's skin is warm and dry. Respiratory: Airway is patent Respiratory effort is even, unlabored, Respiratory pattern is regular, symmetrical. Musculoskeletal: Range of motion: limited in left knee. Historical: - Allergies: 15:37 crab; aj1 - Home Meds: 15:37 Hydrocodone-Acetaminophen Oral [Active]; Lasix Oral [Active]; Tegretol Oral [Active]; aj1 Xanax Oral [Active]; - PMHx: 15:37 Back pain; knee pain; CHF; aj1 - Immunization history:: Flu vaccine is not up to date. - Social history:: Smoking status: Patient uses tobacco products, smokes one pack cigarettes per day. - Ebola Screening: : Patient denies travel to an Ebola-affected area in the 21 days before illness onset. Screenin:56 Abuse screen: Denies threats or abuse. Nutritional screening: No deficits noted. em Tuberculosis screening: No symptoms or risk factors identified. Fall Risk Gait- Impaired (20 pts.). Total Martínez Fall Scale indicates No Risk (0-24 pts). Assessment: 16:04 General: Appears in no apparent distress. uncomfortable, Behavior is calm, cooperative. em Pain: Complains of pain in left knee Pain currently is 5 out of 10 on a pain scale. Neuro: Level of Consciousness is awake, alert, obeys commands, Oriented to person, place, time, situation. Cardiovascular: Patient's skin is warm and dry. Respiratory: Airway is patent Respiratory effort is even, unlabored, Respiratory pattern is regular, symmetrical. Derm: Skin is intact, Skin is pink, warm \T\ dry. Musculoskeletal: Range of motion: intact in all extremities, Swelling absent. 16:10 General: The previous assessment is accurate, call light remains within reach. . ss 16:45 Reassessment: reports he takes [place] 7.5 TID, last one was at noon, provider notified, em new medication orders received. 17:45 Reassessment: Patient appears in no apparent distress at this time. Patient and/or em family updated on plan of care and expected duration. Pain level reassessed. Patient is alert, oriented x 3, equal unlabored respirations, skin warm/dry/pink. Patient states feeling better. Vital Signs: 15:37 BP 138 / 71; Pulse 64; Resp 18; Temp 99.4; Pulse Ox 97% on R/A; Weight 140.61 kg (R); aj1 Height 6 ft. 1 in. (185.42 cm) (R); Pain 5/10; 15:37 Body Mass Index 40.90 (140.61 kg, 185.42 cm) aj1 ED Course: 15:28 Patient arrived in ED. sb2 15:28 Mario Martinez MD is Private Physician. sb2 15:35 Triage completed. aj1 15:37 Arm band placed on Patient placed in an exam room. aj1 15:40 Dmitriy Ross PA is PHCP. [facility] 15:40 Daniele Fuentes MD is Attending Physician. [facility] 15:48 Froilan Guaman LVN is Primary Nurse. em 15:56 Patient has correct armband on for positive identification. Placed in gown. Bed in low em position. Call light in reach. Side rails up X2. Adult w/ patient. 17:13 Knee Left 3 View XRAY In Process Unspecified. EDMS 17:40 Jose Paredes MD is Referral Physician. [facility] 18:02 No provider procedures requiring assistance completed. Patient did not have IV access em during this emergency room visit. 18:03 Crutch training done. Knee immobilizer applied on left knee. em Administered Medications: 16:50 Drug: [place] (7.5 mg-325 mg) 1 tabs Route: PO; em 18:02 Follow up: Response: No adverse reaction; Pain is decreased em Outcome: 17:42 Discharge ordered by MD. [facility] 18:02 Discharged to home with crutches. em 18:02 Condition: good 18:02 Discharge instructions given to patient, family, Instructed on discharge instructions, follow up and referral plans. Demonstrated understanding of instructions, follow-up care, crutch walking. 18:03 Patient left the ED. em Signatures: Dispatcher [employer] Iman Suero RN RN aj1 Dmitriy Ross PA PA [facility] Froilan Guaman, AUTO BODY MECHANIC APPRENTICE [employer] BODY MECHANIC APPRENTICE em Mickie Soares RN RN Cathleen Dennison sb2 Corrections: (The following items were deleted from the chart) 15:39 15:37 BP 138 / 71; Pulse 64bpm; Resp 18bpm; Pulse Ox 97% RA; Temp 99.4F; 140.61 kg aj1 Reported; Height 6 ft. 1 in. Reported; BMI: 40.9; Pain 6/10; aj1
--- NOTE | 2018-09-23 17:43 | EDPHYS ---
Physician Documentation [facility] Name: Mick Jones Age: 53 yrs Sex: Male : 1965 Arrival Date: 09/23/2018 Time: 15:28 Bed 19 Private MD: Mario Martinez ED Physician Daniele Fuentes HPI: 09/23 15:44 This 53 yrs old Male presents to ER via Wheelchair with complaints of Knee jmm Pain. 15:44 The patient presents with an injury, pain. Onset: The symptoms/episode began/occurred jmm acutely, just prior to arrival. Modifying factors: The symptoms are alleviated by remaining still, the symptoms are aggravated by weight bearing. Associated signs and symptoms: Pertinent positives: numbness. This is a 53 year old male with a history of chronic back and knee pain that presents to the ED with left knee pain. Patient states he felt a pop as he was lifting his leg to get into his truck. Patient states this has happened on two other occasions both eventually needing surgery. Patient complains of chronic numbness and shooting pain down his knee to his foot. . Historical: - Allergies: 15:37 crab; aj1 - Home Meds: 15:37 Hydrocodone-Acetaminophen Oral [Active]; Lasix Oral [Active]; Tegretol Oral [Active]; aj1 Xanax Oral [Active]; - PMHx: 15:37 Back pain; knee pain; CHF; aj1 - Immunization history:: Flu vaccine is not up to date. - Social history:: Smoking status: Patient uses tobacco products, smokes one pack cigarettes per day. - Ebola Screening: : Patient denies travel to an Ebola-affected area in the 21 days before illness onset. ROS: 15:44 Constitutional: Negative for fever, chills, and weight loss, Cardiovascular: Negative jmm for chest pain, palpitations, and edema, Respiratory: Negative for shortness of breath, cough, wheezing, and pleuritic chest pain. 15:44 MS/extremity: Positive for injury or acute deformity, pain. 15:44 All other systems are negative. Exam: 15:44 Constitutional: This is a well developed, well nourished patient who is awake, alert, jmm and in no acute distress. Head/Face: atraumatic. Eyes: EOMI, no conjunctival erythema appreciated ENT: Moist Mucus Membranes Neck: Trachea midline, Supple Chest/axilla: Normal chest wall appearance and motion. Cardiovascular: Regular rate and rhythm. No edema appreciated Respiratory: Normal respirations, no respiratory distress appreciated Abdomen/GI: Non distended, soft Back: Normal ROM Skin: General appearance color normal 15:44 Musculoskeletal/extremity: from appreciated to the left knee, no swelling is appreciated, full dorsalis pedis pulse is appreciated, compartments are soft. NVI. . 15:44 Skin: Appearance: Color: normal in color. 15:44 Neuro: Orientation: is normal, Mentation: is normal, Memory: is normal. 15:44 Psych: Behavior/mood is pleasant, cooperative. Vital Signs: 15:37 BP 138 / 71; Pulse 64; Resp 18; Temp 99.4; Pulse Ox 97% on R/A; Weight 140.61 kg (R); aj1 Height 6 ft. 1 in. (185.42 cm) (R); Pain 5/10; 15:37 Body Mass Index 40.90 (140.61 kg, 185.42 cm) aj1 Procedures: 15:44 Splinting: Splint applied to left leg using knee immobilizer, applied by tech. Examined jmm by me, post splint application: neurovascular intact, 2+ distal pulses palpable, brisk capillary refill noted, Patient tolerated well. MDM: 15:44 Patient medically screened. [facility] 17:39 Differential diagnosis: closed fracture, contusion, internal derangement. Data jm reviewed: vital signs, nurses notes, radiologic studies, plain films. Counseling: I had a detailed discussion with the patient and/or guardian regarding: the historical points, exam findings, and any diagnostic results supporting the discharge/admit diagnosis, radiology results, the need for outpatient follow up, to return to the emergency department if symptoms worsen or persist or if there are any questions or concerns that arise at home. ED course: KRYSTA is not consistent with dislocation. Patient states his numbness is chronic. Full dorsalis pulse. Extremity appear NVI. Patient is advised to follow up with orthopedics for further evaluation. Patient and family understood and agree with the plan of care. . 09/23 16:04 Order name: Knee Left 3 View XRAY; Complete Time: 17:27 meena 09/23 17:27 Order name: Knee Immobilizer; Complete Time: 18:02 jmm Administered Medications: 16:50 Drug: Countyline (7.5 mg-325 mg) 1 tabs Route: PO; em 18:02 Follow up: Response: No adverse reaction; Pain is decreased em Disposition: 09/23/18 17:42 Discharged to Home. Impression: Internal derangement of knee. - Condition is Stable. - Discharge Instructions: Knee Pain. - Medication Reconciliation Form, Thank You Letter, Antibiotic Education, Prescription Opioid Use form. - Follow up: Jose Paredes MD; When: 2 - 3 days; Reason: Recheck today's complaints, Continuance of care, Re-evaluation by your physician. Addendum: 09/25/2018 10:29 Co-signature as Attending Physician, Daniele Fuentes MD. g s Signatures: Dispatcher [employer] EDIman Garcia, CLAIRE RN aj1 Dmitriy Ross, KAITLYNN PA meenam Froilan Guaman, SAND TEMPERER SAND TEMPERER em Daniele Fuentes MD MD Corrections: (The following items were deleted from the chart) 09/23 18:03 17:42 09/23/2018 17:42 Discharged to Home. Impression: Internal derangement of knee. em Condition is Stable. Forms are Medication Reconciliation Form, Thank You Letter, Antibiotic Education, Prescription Opioid Use. Follow up: Jose Paredes; When: 2 - 3 days; Reason: Recheck today's complaints, Continuance of care, Re-evaluation by your physician. lisa
== END 2018-09-23 18:03 | disposition home or self-care (01) ==
LOC: ER 15:24
DX: M23.92 Unspecified internal derangement of left knee (principal); I50.9 Heart failure, unspecified; F17.210 Nicotine dependence, cigarettes, uncomplicated; Z91.013 Allergy to seafood
CPT/HCPCS: 99283

== ENCOUNTER 2018-10-26 06:39 | Day surgery (SDC) | payer OTHER ==
--- OUTSIDE RECORDS SUMMARY | 2018-10-26 06:42 | XMS REPORT | Clinical Summary ---
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 after 10/25/2017 Results XR knee 1 or 2 views left (08/28/2018 4:14 PM HEEL BOOM OPERATOR) Narrative Performed At FINAL REPORT [facility] Exam:Left knee two views History:Pain Comparison: None. Findings: No fracture or malalignment. Degenerative arthrosis of the knee most prominent involving the medial compartment with joint space narrowing and osteophytosis. Calcified bodies posteriorly. Impression: Moderate degenerative arthrosis of the medial compartment of the knee. Signed: Kulwant Ivy MD Report Verified Date/Time:08/28/2018 16:27:13 Reading Location: [facility] Reading Room [address] [place] [address] Procedure Note Interface, External Ris In - 08/28/2018 4:29 PM HEEL BOOM OPERATOR FINAL REPORT Exam: Left knee two views History: Pain Comparison: None. Findings: No fracture or malalignment. Degenerative arthrosis of the knee most prominent involving the medial compartment with joint space narrowing and osteophytosis. Calcified bodies posteriorly. Impression: Moderate degenerative arthrosis of the medial compartment of the knee. Signed: Kulwant Ivy MD Report Verified Date/Time: 08/28/2018 16:27:13 Reading Location: [facility] Reading Room [address] [place] [address] Performing Organization Address City/State/Zipcode Phone Number GE RIS after 10/25/2017 Insurance Payer Benefit Plan / Subscriber ID Type Phone Address Group MEDICAID - MEDICAID [facility]LY [facility] xxxxxxxxx Medicaid Contracted [employer] C[employer] PLAN
--- OUTSIDE RECORDS SUMMARY | 2018-10-26 06:43 | XMS REPORT | CCD ---
:[address] [facility] Care Team Providers Name Role Phone Nixon Rodriguez Consulting Provider Allergies, Adverse Reactions, Alerts Substance Reaction Status NKDA Active Problem List Condition Effective Dates Status Anxiety Resolved Bipolar Resolved Depression Resolved Hepatitis C Resolved Seizure Resolved Medications Medication Instructions Start Date End Date Status [place] 10/325 oral tablet 1-2 tab, PO, Q4-6H, [...] values reflect the clinical guidelines of the [place] [employer].HEMATOLOGY Most recent to oldest [Reference [...]
--- OUTSIDE RECORDS SUMMARY | 2018-10-26 06:43 | XMS REPORT ---
:1965 Author [facility] Address [address] [place] [address] [address]. [address] [place] [address] Care Team Providers Name Role Phone Unavailable [...] 2 VIEWS, LEFT Exam:->chronic pain of ID: [id number] Exam: left knee Left knee two views History: Pain Comparison: None. Findings: No fracture or malalignment. Degenerative arthrosis of the knee most prominent involving the medial compartment with joint space narrowing and osteophytosis. Calcified bodies posteriorly. Impression: Moderate degenerative arthrosis of the medial compartment of the knee. Signed: Kulwant Ivy MDReport Verified Date/Time: 08/28/2018 16:27:13 Reading Location: [facility] Reading Room [address] [place] [address]
--- OUTSIDE RECORDS SUMMARY | 2018-10-26 06:43 | XMS REPORT | Continuity of Care Document ---
:1965 Author Organization Interface Problems Problem Status Onset Classification Date Comments Source Date Reported SIALOLTHOASIS Active 11/03/19 [facility] BURN Active 01/16/[address] Anxiety Resolved Problem 01/17/2013 [facility] Bipolar Resolved Problem 01/17/2013 [facility] Depression Resolved Problem 01/17/2013 [facility] Hepatitis C Resolved Problem 01/17/2013 [facility] Seizure Resolved Problem 01/17/2013 [facility] Anxiety Resolved Problem 01/06/2017 [facility] Bipolar Resolved Problem 01/06/2017 [facility] COPD (<span Active Problem 01/06/2017 ID="[id number] [facility] ">Confirmed</spa n>) Congestive heart Active Problem 01/06/20172015 failure (<[facility] ID="[id number] ">Confirmed</spa n>)<sup>1</sup> Depression Resolved Problem 01/06/2017 [facility] Acid reflux Active Problem 01/06/2017 [facility] Hepatitis C Resolved Problem 01/06/2017 [facility] Depression Active Problem 01/06/2017 [facility] Seizure Resolved Problem 01/06/2017 [facility] Apnea, sleep Active Problem 01/06/2017 [facility] CAT BITE Active [facility] Medications Medication Details Route Status Patient Ordering Order Source Instructions Provider Date Acetaminophen 1,000 mg, Inactive 01/03[facility] Route: IVPB, 2016 [facility] Drug form: INJ, ONCE, Dosing Weight 140, kg, PRN Pain Score 1-3, Start date: 01/03/17 11:56:00 CDT, Duration: 1 doses or times, Stop date: Limited # of times Calcium Chloride 1,000 mL, Rate: Inactive 0.0014 MEQ/ML / 125 ml/hr, 2016 [facility] Potassium Infuse over: 8 Chloride 0.004 hr, Route: IV, MEQ/ML / Sodium Dosing Weight Chloride 0.103 140 kg, Total MEQ/ML / Sodium Volume: 1,000, Lactate 0.028 Start date: MEQ/ML 01/03/17 Injectable 11:56:00 CDT, Solution Duration: 30 day, Stop date: 02/02/17 11:55:00 CDT Fentanyl 50 microgram, 1 Inactive mL, Route: IVP2016 [facility] Drug form: INJ, Q5Min, Dosing Weight 140, kg, PRN Pain Score 7-10, Priority: Routine, Start date: 01/03/17 11:56:00 CDT, Duration: 2 doses or times, Stop date: Limited # of timesNotes: (Same as: Sublimaze) Preservative free. Morphine 4 mg, 1 mL, Inactive Route: IVP2016 [facility] Drug form: INJ, Q5Min, Dosing Weight 140, kg, PRN Pain Score 7-10, Start date: 01/03/17 11:56:00 CDT, Duration: 3 doses or times, Stop date: Limited # of timesNotes: (Same as:MORPhine Sulfate) Flumazenil 0.2 mg, 2 mL, Inactive Route: IV2016 [facility] Drug form: INJ, PRN, Dosing Weight 140, kg, PRN Benzodiazepine Reversal, Initial dose, Start date: 01/03/17 11:56:00 CDT, Duration: 30 day, Stop date: 02/02/17 11:55:00 CDTNotes: (Same as: Romazicon) Hydralazine 5 mg, 0.25 mL, Inactive Route: IV2016 [facility] Drug form: INJ, Q20Min, Dosing Weight 140, kg, PRN Elevated BP, Start date: 01/03/17 11:56:00 CDT, Duration: 4 doses or times, Stop date: Limited # of timesNotes: (Same as: Apresoline) Push over 5 minutes Labetalol 5 mg, 1 mL, Inactive Route: IVP2016 [facility] Drug form: INJ, Q5Min, Dosing Weight 140, kg, PRN Elevated BP, Start date: 01/03/17 11:56:00 CDT, Duration: 5 doses or times, Stop date: Limited # of timesNotes: (Same as: Normodyne, Trandate) Push over 2 minutes Give bolus over 2-3 minutes. Naloxone 0.4 mg, 1 mL, Inactive Route: IVP, 2017 [facility] Drug form: INJ, Q2MIN, Dosing Weight 140, kg, PRN Narcotic Reversal, Start date: 01/03/17 11:56:00 CDT, Duration: 8 doses or times, Stop date: Limited # of timesNotes: Same as Narcan Midazolam 1 mg, 1 mL, Inactive Route: IV2016 [facility] Drug form: INJ, Q5Min, Dosing Weight 140, kg, PRN Anxiety, Start date: 01/03/17 11:56:00 CDT, Duration: 2 doses or times, Stop date: Limited # of timesNotes: (Same as: Versed) MEDICATION WASTE Product Size: 2 mg Product Wasted: ___ mg Meperidine 12.5 mg, 0.25 Inactive mL, Route: IV2016 [facility] Drug form: INJ, Q30Min, Dosing Weight 140, kg, PRN Other -See Comment, For shivering, Start date: 01/03/17 11:56:00 CDT, Duration: 2 doses or times, Stop date: Limited # of timesNotes: (Same As: Demerol) Ondansetron 4 mg, 2 mL, Inactive Route: IV2016 [facility] Drug form: INJ, ONCE, Dosing Weight 140, kg, PRN Nausea & Vomiting, Start date: 01/03/17 11:56:00 CDTNotes: (Same as: Zofran) MEDICATION WASTE Product Size: 4 mg Product Wasted: ___ mg Diphenhydramine 12.5 mg, 0.25 Inactive mL, Route: IVP2016 [facility] Drug form: INJ, Q6H, Dosing Weight 140, kg, PRN Itching, Start date: 01/03/17 11:56:00 CDT, Duration: 30 day, Stop date: 02/02/17 11:55:00 CDTNotes: (Same as: Benadryl) ondansetron Route: IV, Drug Inactive (ANES) form: INJ, 2016 [facility] ONCE, Stop date: 01/03/17 11:37:00 CDT glycopyrrolate Route: IV, Drug Inactive MH (ANES) form: INJ, 2016 [facility] , Stop date: 01/03/17 11:37:00 CDT neostigmine Route: IV, Drug Inactive (ANES) form: INJ, 2016 [facility] , Stop date: 01/03/17 11:37:00 CDT dexamethasone Route: IV, Drug Inactive (ANES) form: INJ, 2016 [facility] , Stop date: 01/03/17 11:37:00 CDT Aspirin 0 Refill(s) Active 2016 [facility] rocuronium Route: IV, Drug Inactive (ANES) form: INJ, 2016 [facility] , Stop date: 01/03/17 11:12:00 CDT succinylcholine Route: IV, Drug Inactive (ANES) form: INJ, 2016 [facility] , Stop date: 01/03/17 11:07:00 CDT lidocaine (ANES) Route: IV, Drug Inactive form: INJ, 2016 [facility] , Stop date: 01/03/17 11:07:00 CDT propofol (ANES) Route: IV, Drug Inactive form: INJ, 2016 [facility] , Stop date: 01/03/17 11:07:00 CDT fentaNYL (ANES) Route: IV, Drug Inactive form: INJ, 2016 [facility] , Stop date: 01/03/17 11:07:00 CDT midazolam (ANES) Route: IV, Drug Inactive form: SOLN, 2016 [facility] , Stop date: 01/03/17 11:02:00 CDT ceFAZolin (ANES) Route: IV, Drug Inactive form: INJ, 2016 [facility] , Stop date: 01/03/17 11:02:00 CDT LR 1000 mL INJ Route: IV, Inactive (ANES) Total Volume: 2016 [facility] 1,000, Start date: 01/03/17 10:15:00 CDT, Stop date: 01/03/17 11:15:00 CDT Lasix =1 tab, PO, Active Daily, 0 2016 [facility] Refill(s) Polysporin 1 appl, Route: TOP No Longer [place] 05/08[facility] topical ointment TOP, BID, Drug Active 2012 Medical form: OINT, Center Start date: 01/16/13 9:00:00, Duration: 30 day, Stop date: 02/14/13 17:00:00 [place] 10/325 1-2 tab, PO, PO Active [place] [facility] oral tablet Q4-6H, PRN, 2012 Medical tab, Pain, Center Substitution Allowed, Maintenance morphine Sulfate 6 mg, 0.6 mL, IVP No Longer [place] 01/16[facility] Route: IVP, Active 2012 Medical Drug form: [place] SOLN, ONCE, Dosing Weight 129.545, kg, Priority: STAT, Start date: 01/15/13 21:51:00, Stop date: 01/15/13 21:51:00 bacitracin 5 appl, Route: TOP No Longer [place] 01/16[facility] topical TOP, ONCE, Drug Active 2012 Medical form: OINT, Center Start date: 01/15/13 21:46:00, Stop date: 01/15/13 21:46:00 bacitracin 1 appl, Route: TOP No Longer [place] 01/16[facility] TOP, ONCE, Active 2012 Medical Dosing Weight Center 129.545, kg, Start date: 01/15/13 21:41:00, Stop date: 01/15/13 21:41:00 morphine Sulfate 6 mg, Route: IVP No Longer [address] IVP, Drug form: Active 2012 Medical INJ, ONCE, Center Dosing Weight 129.545, kg, Priority: STAT, Start date: 01/15/13 21:34:00, Stop date: 01/15/13 21:34:00 Dilantin 100 mg 4 cap, Route: PO No Longer [place] 01/16[facility] oral capsule, PO, ONCE, Active 2012 Medical extended release Dosing Weight Center 129.545, kg, Start date: 01/15/13 20:45:00, Stop date: 01/15/13 20:45:00 morphine Sulfate 6 mg, 0.6 mL, IVP No Longer [place] [id number] Route: IVP, Active 2012 Medical Drug form: [place] SOLN, ONCE, Dosing Weight 129.545, kg, Priority: [...] Normal [place] meq/L 20.0 /2012 [facility] CHEMISTRY eGFR 103 05/ NA 1Result Comment: The eGFR is calculated using the CKD-EPI formula. In most young, healthy individuals the eGFR will be > 90 mL/min/1.73m2. The eGFR declines with age. An eGFR of 60-89 may be normal in [facility] mL/min/ /2012 some populations, particularly the [...] 10.5 01/16 Normal [place] mg/dL [facility] CHEMISTRY CO2 27 24 - 32 01/16 Normal [facility] meq/L [facility] CHEMISTRY Chloride Lvl 107 95 - 109 01/16 Normal [place] meq/L [facility] CHEMISTRY Potassium Lvl 4.2 3.5 - 5.1 01/16 Normal [facility] meq/L [facility] CHEMISTRY Creatinine 0.9 0.5 - 1.4 01/16 Normal [place] Lvl mg/dL [facility] CHEMISTRY Sodium Lvl 144 135 - 145 01/16 Normal [place] meq/L [facility] CHEMISTRY BUN 13 7 - 22 01/16 Normal [facility] mg/dL [facility] CHEMISTRY Glucose Lvl 113 70 - 99 01/16 HI 2Interpretive Data: Adult reference range values reflect the clinical guidelines [place] mg/dL /2012 of the [place] [employer]. [facility] HEMATOLOGY PTT 26.6 s 22.9 - 05 Normal 4Interpretive [facility] 35.8 /2012 Data: Heparin [facility] Center Range: 57 - 92 Seconds HEMATOLOGY PT 12.2 s 12.0 - 05/08 Normal [facility] 14.7 /2012 [facility] HEMATOLOGY INR 0.88 0.85 - 01/16 Normal 3Interpretive Data: RECOMMENDED RANGES FOR PROTIME INR: [facility] 1. 2.0-3.0 for most medical and surgical thromboembolic states. Medical 2.5-3.5 for artificial heart valves and recurrent embolism. Center INR SHOULD BE USED ONLY FOR PATIENTS ON STABLE ANTICOAGULANT THERAPY. HEMATOLOGY Macrocyte 1+ None Seen 01/16 [facility] *[facility]* Center (01/15/2013 20:50:42) HEMATOLOGY Basophils # 0.0 0.0 - 0.2 05/ Normal [facility] HEMATOLOGY Lymphocytes # 2.8 1.0 - 5.5 / Normal [facility] HEMATOLOGY Segs-Bands # 3.7 1.5 - 8.1 05/ Normal [facility] HEMATOLOGY Eosinophils # 0.2 0.0 - 0.5 05/ Normal [facility] HEMATOLOGY Monocytes # 0.4 0.0 - 0.8 05/ Normal [facility] HEMATOLOGY Basophils 0.1 % 0.0 - 1.0 05/ Normal [facility] HEMATOLOGY Eosinophils 2.5 % 0.0 - 4.0 05/ Normal [facility] HEMATOLOGY Monocytes 6.0 % 2.0 - 12.0 05/ Normal [facility] HEMATOLOGY Lymphocytes 39.1 % 20.0 - 05/08 Normal [facility] 40.0 /2012 [facility] HEMATOLOGY Segs 52.3 % 45.0 - 05/08 Normal [facility] 75.0 /2012 [facility] HEMATOLOGY Platelet 126 133 - 450 05/ LOW [facility] HEMATOLOGY RDW 12.7 % 11.5 - 05/08 Normal [facility] 14.5 [facility] HEMATOLOGY MCHC 35.4 32.0 - 05/08 Normal [facility] g/dL 36.0 /2012 [facility] HEMATOLOGY Hct 45.9 % 42.0 - 05/08 Normal [facility] 54.0 /2012 [facility] HEMATOLOGY MCH 35.7 pg 27.0 - 01/16 [facility] 31.0 /2012 [facility] HEMATOLOGY MCV 100.7 80.0 - 01/16 HI [facility] fL 94.0 /2012 [facility] HEMATOLOGY Hgb 16.2 14.0 - 01/16 Normal [facility] g/dL 18.0 /2012 [facility] HEMATOLOGY RBC 4.55 4.70 - 01/16 LOW [facility] M/CM 6.10 /2012 [facility] HEMATOLOGY MPV 7.2 fL 7.4 - 10.4 01/16 LOW [facility] HEMATOLOGY WBC 7.1 3.7 - 10.4 01/16 Normal [facility] /2012 [facility] HEMATOLOGY Anisocyte 1+ None Seen 01/16 [facility] *[facility]* Center (01/15/2013 20:50:31) HEMATOLOGY Plt Morph Normal 01/16 Normal Medical (01/15/2013 20:50:31) Center Vital Signs Vital Sign Value Date Comments Source Respitory Rate 12 01/03/2017 [facility] Systolic (mm Hg) 126 01/03/2017 [facility] Diastolic (mm Hg) 57 01/03/2017 [facility] Respitory Rate 17 01/03/2017 [facility] Systolic (mm Hg) 131 01/03/2017 [facility] Diastolic (mm Hg) 62 01/03/2017 [facility] Respitory Rate 15 01/03/2017 [facility] Systolic (mm Hg) 115 01/03/2017 [facility] Diastolic (mm Hg) 65 01/03/2017 [facility] Heart Rate 58 01/03/2017 [facility] BMI Calculated 40.72 12/29/2016 [facility] Height 185.42 cm 12/29/2016 [facility] Weight 140 12/29/2016 [facility] Weight 129.545 01/16/2013 [facility] Height 185.42 cm 01/16/2013 [facility] Encounters Location Location Encounter Encounter Reason Attending ADM DC Status Source Details Type Number For Provider Date Date Visit [facility] Emergency [id number] MIGUEL LEVY 01/15 01/15 Active [facility] Medical /2012 [facility] [id number] Jitendra 01/03 01/03 [facility] [place] /2016 [facility] Procedures Procedure Code Date Perfomer Comments Source Arthrotomy of [id number] [facility] Hernia repair [id number] [facility] Arthrotomy of [id number] [facility] knee Hernia repair [id number] [facility]
[2018-10-26] MEDS ORDERED: Ringers Lactate 1,000 ML IV ONE (07:32)
[2018-10-26] MEDS ORDERED: PROPOFOL 200 MG/20 ML VIAL IV ONE (07:53)
[2018-10-26] MEDS ORDERED: LIDOCAINE 1% MPF 5 ML VIAL ONE (07:53)
--- NOTE | 2018-10-26 08:34 | ENDO RPT ---
[address], [address] COLONOSCOPY PROCEDURE REPORT EXAM DATE: 10/26/2018 PATIENT NAME: Mick Jones MR #: [id number] BIRTHDATE: 1965 ATTENDING: Fabricio Brooke DR STATUS: outpatient ASTROPHYSICS PROFESSOR: Daniela Sloan, Elisabeth Newton RN, and Krystal Sloan INDICATIONS: The patient is a 53 yr old Male here for a colonoscopy due to colon cancer screening PROCEDURE PERFORMED: Colonoscopy and Screening Colonoscopy MEDICATIONS: Per Anesthesia. ESTIMATED BLOOD LOSS: None CONSENT: The patient understands the risks and benefits of the procedure and understands that these risks include, but are not limited to: sedation, allergic reaction, infection, perforation and/or bleeding. Alternative means of evaluation and treatment include, among others: physical exam, x-rays, and/or surgical intervention. The patient elects to proceed with this endoscopic procedure. DESCRIPTION OF PROCEDURE: During intra-op preparation period all mechanical medical equipment was checked for proper function. Hand hygiene and appropriate measures for infection prevention was taken. Procedure, possible complications, alternatives including, but not limited to possibility of bleeding, perforation, tear, infection, sepsis, need for surgery, need for blood transfusion, were explained to the patient. After the risks, benefits and alternatives of the procedure were thoroughly explained, Informed consent was verified, confirmed and timeout was successfully executed by the treatment team. The patient was placed in the left lateral position. A digital rectal exam was performed and revealed internal hemorrhoids. After appropriate level of anesthesia, the scope was passed. The EC-[id number] ([id number]) endoscope was introduced through the anus and advanced to the cecum, which was identified by the appearance. The quality of the prep was fair. The instrument was then slowly withdrawn as the colon was fully examined. Scope withdrawal time was 8 minutes. COLON FINDINGS: Small internal hemorrhoids were found. The colon mucosa was otherwise normal. Retroflexed views revealed no abnormalities. The scope was then completely withdrawn from the patient and the procedure terminated. ADVERSE EVENTS: There were no complications. IMPRESSIONS: 1. Small internal hemorrhoids 2. The colon mucosa was otherwise normal RECOMMENDATIONS: 1. fiber rich diet 2. yearly hemoccult starting in 4 years 3. hemorrhoidal hygiene RECALL: Return in 10 year(s) for Colonoscopy. Fabricio Brooke DR eSigned: Fabricio Brooke DR 10/26/2018 8:23 AM cc: CPT CODES: ICD9 CODES: PATIENT NAME: Mick Jones MR#: [id number]
== END 2018-10-26 08:55 | disposition home or self-care (01) ==
LOC: OR 06:39
PROVIDERS: ATTEND Surgery
PROC: 0DJD8ZZ Inspection of Lower Intestinal Tract, Via Natural or Artificial Opening Endoscopic (ICD-10-PCS; principal; 2018-10-26 08:00)
DX: Z12.11 Encounter for screening for malignant neoplasm of colon (principal); K64.8 Other hemorrhoids; E03.9 Hypothyroidism, unspecified; E78.5 Hyperlipidemia, unspecified; J44.9 Chronic obstructive pulmonary disease, unspecified; I10 Essential (primary) hypertension; G89.4 Chronic pain syndrome; G47.33 Obstructive sleep apnea (adult) (pediatric); M17.0 Bilateral primary osteoarthritis of knee; F31.9 Bipolar disorder, unspecified; F41.9 Anxiety disorder, unspecified; F17.210 Nicotine dependence, cigarettes, uncomplicated; Z79.51 Long term (current) use of inhaled steroids; Z79.891 Long term (current) use of opiate analgesic; Z79.899 Other long term (current) drug therapy
CPT/HCPCS: J2704

== ENCOUNTER → 2023-11-17 | Emergency (ER) | payer OTHER ==
[2023-11-17 18:12] LABS: Absolute Lymphocytes (CBC) 1.7 K/uL (0.7-4.9); Basophils % 0.5 % (0-1.3); Hematocrit 43.9 % (39.6-49.0); Lymphocytes % 28.5 % (15.3-44.8); MCV 95.1 fL (80-100); Platelets 125 thou/uL (152-406); RBC Red Blood Cell Count 4.62 M/uL (4.33-5.43)
[2023-11-17 18:15] LABS: Protime INR 1.23
[2023-11-17 18:30] LABS: Albumin 4.2 g/dL (3.4-5.0); Albumin/Globulin Ratio 1.3 (1.1-1.8); Anion Gap 6.9 mEq/L (5.0-15.0); Bilirubin Direct 0.5 mg/dL (0-0.2); Bilirubin Total 1.5 mg/dL (0.2-1.0); Magnesium 2.2 mg/dL (1.6-2.4); Potassium 3.9 mEq/L (3.5-5.1); Protein, Total 7.4 g/dL (6.4-8.2); Troponin High Sensitivity 8.7 pg/mL (<58.9)
--- NOTE | 2023-11-17 19:01 | RAD REPORT ---
EXAM DESCRIPTION: CT - Head Brain Wo Cont - 11/17/2023 6:53 pm CLINICAL HISTORY: memory loss times 2 weeks COMPARISON: No comparisons TECHNIQUE: All CT scans are performed using dose optimization technique as appropriate and may inclu de automated exposure control or mA/KV adjustment according to patient size. FINDINGS: No intracranial hemorrhage, hydrocephalus or extra-axial fluid collection.No areas of brai n edema or evidence of midline shift. The paranasal sinuses and mastoids are clear. The calvarium is intact. IMPRESSION: No acute intracranial abnormality.
--- NOTE | 2023-11-17 20:42 | RAD REPORT ---
EXAM DESCRIPTION: CT - Head angio - 11/17/2023 8:32 pm CLINICAL HISTORY: memory issues COMPARISON: Head Brain Wo Cont dated 11/17/2023 TECHNIQUE: CT angiography of the head was performed with maximum intensity reformatted images. 3D ma ximum intensity pixel (MIP) reconstructions were created All CT scans are performed using dose optimization technique as appropriate and may include automated exposure control or mA/KV adjustment according to patient size. FINDINGS: Anterior circulation: No aneurysm or large vessel occlusion. No hemodynamically significant stenosis. No arteriovenous malf ormation identified. Posterior circulation: Left dominant vertebral artery. No aneurysm or large vessel occlusion. No hemodynamically significant stenosis. No arteriovenous malformation identified. IMPRESSION: No significant flow abnormality is detected.
--- NOTE | 2023-11-17 20:44 | RAD REPORT ---
EXAM DESCRIPTION: CT - Neck Angio - 11/17/2023 8:32 pm CLINICAL HISTORY: memory issues COMPARISON: No comparisons TECHNIQUE: CT angiography of the neck vessels was performed with maximum intensity reformatted image s. CAROTID STENOSIS REFERENCE USING NASCET CRITERIA: Mild - <50% stenosis. Moderate - 50-69% stenosis. Severe - 70-94% stenosis. Near occlusion - 95-99% stenosis. Occluded - 100% stenosis. All CT scans are performed using dose optimization technique as appropriate and may include automated exposure control or mA/KV adjustment according to patient size. FINDINGS: A left aortic arch is identified with normal three vessel configuration of the great vesse ls. No significant flow abnormality is seen of the common carotid bilaterally. No significant stenosis is identified involving the cervical segments of both internal carotid arteri es. Mild calcified and noncalcified plaque present at the right proximal ICA just beyond the bulb. Mi ld noncalcified plaque at the left ICA just beyond the bulb with less than 50% stenosis. Normal flow is seen within both vertebral arteries. IMPRESSION: No significant flow abnormality of the neck vessels is identified.
--- NOTE | 2023-11-17 21:06 | ER ---
Nurse's Notes [facility] Name: Mick Jones Age: 58 yrs Sex: Male : 1965 Arrival Date: 11/17/2023 Time: 16:42 Bed 19 Private MD: Diagnosis: Abnormal weight loss Presentation: 11/16 16:50 Chief complaint: Patient states: memory loss and confusion for approximately 2 weeks. aa5 Pt also reports no appetite and reports vomiting yesterday. Pt currently A\T\O x 4. 16:50 Coronavirus screen: At this time, the client does not indicate any symptoms associated aa5 with coronavirus-19. Ebola Screen: Patient denies travel to an Ebola-affected area in the 21 days before illness onset. Initial Sepsis Screen: Does the patient meet any 2 criteria? No. Patient's initial sepsis screen is negative. Does the patient have a suspected source of infection? No. Patient's initial sepsis screen is negative. Risk Assessment: Do you want to hurt yourself or someone else? Patient reports no desire to harm self or others. Onset of symptoms was 2023. 16:50 Acuity: KAITLYNN 3 aa5 16:50 Method Of Arrival: Ambulatory aa5 Historical: - Allergies: 16:51 crab; aa5 - PMHx: 16:51 Back pain; CHF; knee pain; COPD (Unknown); aa5 - Immunization history:: Adult Immunizations unknown. - Social history:: Smoking status: Patient reports the use of cigarette tobacco products, smokes three packs cigarettes per day. Screenin:17 [facility] ED Fall Risk Assessment (Adult) History of falling in the last 3 months, kd3 including since admission No falls in past 3 months (0 pts) Confusion or Disorientation No (0 pts) Intoxicated or Sedated No (0 pts) Impaired Gait No (0 pts) Mobility Assist Device Used No (0 pt) Altered Elimination No (0 pt) Score/Fall Risk Level 0 - 2 = Low Risk Maintained a safe environment. Abuse screen: Denies threats or abuse. Denies injuries from another. Nutritional screening: No deficits noted. Tuberculosis screening: No symptoms or risk factors identified. Assessment: 18:15 General: Appears in no apparent distress. Behavior is calm, cooperative. Pain: Denies kd3 pain. Neuro: Level of Consciousness is awake, alert, obeys commands, Oriented to person, place, time, situation. Cardiovascular: Patient's skin is warm and dry. Respiratory: Airway is patent Trachea midline Respiratory effort is even, unlabored, Respiratory pattern is regular, symmetrical. 19:44 General: Appears in no apparent distress. Behavior is calm, cooperative. Neuro: Level kd3 of Consciousness is awake, alert, obeys commands, Oriented to person, place, time, situation. Respiratory: Airway is patent Trachea midline Respiratory effort is even, unlabored, Respiratory pattern is regular, symmetrical. 20:45 Reassessment: Patient appears in no apparent distress at this time. No changes from kd3 previously documented assessment. Patient and/or family updated on plan of care and expected duration. Pain level reassessed. Patient is alert, oriented x 3, equal unlabored respirations, skin warm/dry/pink. Vital Signs: 16:50 BP 152 / 84; Pulse 58; Resp 16 S; Temp 98(TE); Pulse Ox 99% on R/A; Weight 94.35 kg aa5 (R); Height 6 ft. 1 in. (R); 18:16 BP 148 / 66; Pulse 49; Resp 16; Pulse Ox 99% on R/A; kd3 18:28 BP 138 / 69; Pulse 49; Resp 19; Pulse Ox 98% on R/A; kd3 19:44 BP 125 / 62; Pulse 48; Resp 17; Pulse Ox 96% on R/A; kd3 20:44 BP 145 / 66; Pulse 47; Resp 15; Pulse Ox 97% on R/A; kd3 16:50 Body Mass Index 27.44 (94.35 kg, 185.42 cm) aa5 ED Course: 16:47 Patient arrived in ED. rg4 16:50 Arm band placed on. aa5 16:54 Triage completed. aa5 17:06 Frankie Fletcher PA is PHCP. cp 17:06 Hasmukh Stout DO is Attending Physician. cp 17:30 [facility] Flores, CLAIRE is Primary Nurse. kd3 18:08 Basic Metabolic Panel Sent. kd3 18:08 CBC with Diff Sent. kd3 18:08 LFT's Sent. kd3 18:08 Magnesium Sent. kd3 18:08 PT-INR Sent. kd3 18:08 Troponin HS Sent. kd3 18:09 EKG done, by ED staff, reviewed by Frankie CALDERÓN. hb 18:10 Client placed on continuous cardiac and pulse oximetry monitoring. NIBP monitoring hb applied. monitoring analyst on. 18:15 Inserted saline lock: 20 gauge in right antecubital area, using aseptic technique. kd3 Blood collected. 18:17 Patient has correct armband on for positive identification. kd3 18:[address] via stretcher. hb 18:54 CT Head Brain wo Cont In Process Unspecified. EDMS 20:34 CT Head Angio In Process Unspecified. EDMS 20:34 CT Neck Angio In Process Unspecified. EDMS 21:12 Provided Education on: daily weights . kd3 21:12 No provider procedures requiring assistance completed. IV discontinued, intact, kd3 bleeding controlled, No redness/swelling at site. Pressure dressing applied. Administered Medications: No medications were administered Medication: 18:17 VIS not applicable for this client. kd3 Outcome: 21:05 Discharge ordered by . cp 21:12 Discharged to home ambulatory, kd3 21:12 Condition: stable 21:12 Discharge instructions given to patient, family, Instructed on discharge instructions, follow up and referral plans. Demonstrated understanding of instructions, follow-up care, 21:13 Patient left the ED. kd3 Signatures: Dispatcher [employer] EDPA Rose Modi RN RN aa5 Frankie Fletcher PA PA Charlee Clayton, CLAIRE RN Lucie Nieto rg4 [facility] Flores RN RN kd3 Corrections: (The following items were deleted from the chart) 16:53 16:51 PMHx: COPD (knee pain); aa5 aa5
--- NOTE | 2023-11-17 21:06 | EDPHYS ---
Physician Documentation [facility] Name: Mick Jones Age: 58 yrs Sex: Male : 1965 Arrival Date: 11/17/2023 Time: 16:42 Bed 19 Private MD: ED Physician Hasmukh Stout HPI: 11/16 17:30 This 58 yrs old Male presents to ER via Ambulatory with complaints of Memory Loss, cp Decreased Appetite. 17:30 The patient's problem is reported as changes in memory. Onset: The symptoms/episode cp began/occurred gradually, 2 week(s) ago. Context: the episode(s) was witnessed, by family, . Associated signs and symptoms: Pertinent positives: weight loss over the past several months, decreased appetite, 1 episode of vomiting yesterday, Pertinent negatives: abdominal pain, chest pain, confusion, headache, numbness, palpitations, seizure, weakness. Severity of symptoms: in the emergency department the symptoms are unchanged despite home interventions. Patient's baseline: Neuro: alert and fully oriented, Motor: no deficits, Ambulation: walks without assistance, Speech: normal. Historical: - Allergies: 16:51 crab; aa5 - PMHx: 16:51 Back pain; CHF; knee pain; COPD (Unknown); aa5 - Immunization history:: Adult Immunizations unknown. - Social history:: Smoking status: Patient reports the use of cigarette tobacco products, smokes three packs cigarettes per day. ROS: 17:35 Constitutional: Positive for weight loss, Negative for body aches, chills, fatigue, cp fever, malaise, poor PO intake, 17:35 Eyes: Negative for injury, pain, redness, and discharge, cp 17:35 ENT: Negative for drainage from ear(s), ear pain, sore throat, difficulty swallowing, difficulty handling secretions, 17:35 Cardiovascular: Negative for chest pain, palpitations, 17:35 Respiratory: Negative for cough, shortness of breath, wheezing, 17:35 Abdomen/GI: Positive for decreased appetite, Negative for abdominal pain, diarrhea, constipation, active vomiting, 17:35 Back: Negative for pain at rest, pain with movement, 17:35 Neuro: Negative for altered mental status, dizziness, headache, numbness, seizure activity, speech changes, tremor, visual changes, weakness, 17:35 All other systems are negative, Exam: 17:40 Constitutional: The patient appears in no acute distress, alert, awake, comfortable, cp non-diaphoretic, non-toxic, well developed, well nourished, 17:40 Head/Face: Normocephalic, atraumatic. cp 17:40 Eyes: Periorbital structures: appear normal, Pupils: equal, round, and reactive to light and accomodation, Extraocular movements: intact throughout, Conjunctiva: normal, no exudate, no injection, Sclera: no appreciated abnormality, Lids and lashes: appear normal, bilaterally, 17:40 ENT: External ear(s): are unremarkable, Nose: is normal, Mouth: Lips: moist, Oral mucosa: pink and intact, moist, Posterior pharynx: Airway: no evidence of obstruction, patent, 17:40 Neck: ROM/movement: is normal, is supple, without pain, no range of motions limitations, 17:40 Chest/axilla: Inspection: normal, Palpation: is normal, no crepitus, no tenderness, 17:40 Cardiovascular: Rate: bradycardic, Rhythm: regular, Edema: is not appreciated, JVD: is not appreciated, 17:40 Respiratory: the patient does not display signs of respiratory distress, Respirations: normal, no use of accessory muscles, no retractions, labored breathing, is not present, Breath sounds: are clear throughout, no decreased breath sounds, no stridor, no wheezing, 17:40 Abdomen/GI: Inspection: abdomen appears normal, Palpation: abdomen is soft and non-tender, in all quadrants, 17:40 Back: pain, is absent, ROM is normal, 17:40 Neuro: Orientation: to person, place \T\ time. Mentation: is normal, able to follow commands, Cerebellar function: is grossly normal, Motor: moves all fours, strength is normal, Sensation: is normal, 17:52 ECG was reviewed by the Attending Physician. cp 19:12 Radiologist reports: no acute findings cp Vital Signs: 16:50 BP 152 / 84; Pulse 58; Resp 16 S; Temp 98(TE); Pulse Ox 99% on R/A; Weight 94.35 kg aa5 (R); Height 6 ft. 1 in. (R); 18:16 BP 148 / 66; Pulse 49; Resp 16; Pulse Ox 99% on R/A; kd3 18:28 BP 138 / 69; Pulse 49; Resp 19; Pulse Ox 98% on R/A; kd3 19:44 BP 125 / 62; Pulse 48; Resp 17; Pulse Ox 96% on R/A; kd3 20:44 BP 145 / 66; Pulse 47; Resp 15; Pulse Ox 97% on R/A; kd3 16:50 Body Mass Index 27.44 (94.35 kg, 185.42 cm) aa5 MDM: 17:06 Patient medically screened. cp 18:00 Differential diagnosis: CVA, TIA, Dementia, Alzheimer disease, metabolic disorder, drug cp effects, electrolyte abnormality, vitamin deficiency. 21:10 Data reviewed: vital signs, nurses notes, lab test result(s), EKG, radiologic studies, cp CT scan, plain films. 21:10 Test considered but Not performed: MRI: brain. Counseling: I had a detailed discussion cp with the patient and/or guardian regarding the historical points, exam findings, and any diagnostic results supporting the discharge/admit diagnosis, lab results, radiology results, the need for outpatient follow up, a network engineer administrator, a family practitioner, a neurologist, to return to the emergency department if symptoms worsen or persist or if there are any questions or concerns that arise at home. 11/16 17:28 Order name: Basic Metabolic Panel; Complete Time: 18:32 cp 11/16 17:28 Order name: CBC with Diff; Complete Time: 18:32 cp 11/16 17:28 Order name: LFT's; Complete Time: 18:32 cp 11/16 18:33 Interpretation: Normal except: ALK 124; BILIT 1.5; BILID 0.5; IBILI, CALC 1.0. cp 0308 17:28 Order name: Magnesium; Complete Time: 18:32 cp 11/16 17:28 Order name: PT-INR; Complete Time: 18:32 cp 11/16 17:28 Order name: Troponin HS; Complete Time: 18:32 cp 11/16 17:32 Order name: CT Head Brain wo Cont; Complete Time: 19:10 cp 11/16 19:20 Order name: CT Head Angio; Complete Time: 20:53 cp 11/16 19:20 Order name: CT Neck Angio; Complete Time: 20:53 cp 11/16 17:28 Order name: EKG; Complete Time: 17:28 cp 11/16 17:28 Order name: Cardiac monitoring; Complete Time: 18:08 cp 11/16 17:28 Order name: EKG - Nurse/Tech; Complete Time: 18:08 cp 11/16 17:28 Order name: IV Saline Lock; Complete Time: 18:08 cp 11/16 17:28 Order name: Labs collected and sent; Complete Time: 18: cp 11/16 17:28 Order name: O2 Per Protocol; Complete Time: 18: cp 11/16 17:28 Order name: O2 Sat Monitoring; Complete Time: 18: cp EC:52 Rate is 46 beats/min. Rhythm is regular. WA interval is normal. QRS interval is cp prolonged at 118 msec. QT interval is normal. T waves are Inverted in leads III, aVR. Interpreted by me. Reviewed by me. Administered Medications: No medications were administered Disposition Summary: 11/17/23 21:05 Discharge Ordered Notes: Location: Home cp Problem: new cp Symptoms: have improved cp Condition: Stable cp Diagnosis - Abnormal weight loss cp Followup: cp - With: Private Physician - When: 2 - 3 days - Reason: Recheck today's complaints Discharge Instructions: - Discharge Summary Sheet cp - Protein-Energy Malnutrition cp - Form - Daily Weight Record cp Forms: - Medication Reconciliation Form cp - Thank You Letter cp - Antibiotic Education cp - Prescription Opioid Use cp - Patient Portal Instructions cp - Leadership Thank You Letter cp Addendum: 11/18/2023 21:13 I was immediately available on-site in the Emergency Department for consultation in the m s3 care of the patient. Signatures: Dispatcher [employer] Rose Hawkins RN RN aa5 Frankie Fletcher PA PA cp Sims, Marcus, DO DO ms3 Corrections: (The following items were deleted from the chart) 11/16 16:53 16:51 PMHx: COPD (knee pain); chet5 aa5 21:06 21:05 Encounter for examination and observation for unspecified reason cp cp
[2023-11-17 21:28] VITALS: BP 145/66; TEMP 98; O2SAT 97
== END ==
LOC: ER 16:42
DX: R63.4 Abnormal weight loss (principal); I50.9 Heart failure, unspecified; J44.9 Chronic obstructive pulmonary disease, unspecified; F17.210 Nicotine dependence, cigarettes, uncomplicated; Z91.013 Allergy to seafood
CPT/HCPCS: 85025; 80048; 36415; 83735; 85610; 80076; 84484; 70450; 70496; 70498; 99285; Q9967